=== PATIENT | female | born 1985 | race Caucasian/White ===

== ENCOUNTER 2016-11-07 10:38 | Emergency (ER) | payer OTHER ==
[~2016-11-07] VITALS: Ht 175.3 cm; Wt 95.3 kg
[~2016-11-07 10:38] MED LIST: BUPR150T8 PO; CHOL200027 PO; DOCU-27 PO; IBUP-1060 PO; OMEP20CA5 PO; OXYC-323 PO
--- NOTE | 2016-11-07 10:53 | PHYS DOC ---
Past Medical History Past Medical History: Migraines Past Surgical History: Tonsillectomy Alcohol Use: None Drug Use: None Adult General Chief Complaint Chief Complaint: HEADACHE HPI HPI Patient is a 30 year old female presents emergency room today with complaint of a headache 3 days. Patient states that she does have a history of migraines. She is actually been seen here once previously. This was in March 2014 with similar complaint. Patient reports that she feels tightness in the base of her neck and this extends up into her scalp. She denies any focal weakness or alterations in sensation. She denies any visual disturbances or tinnitus. She denies any focal weakness or alterations in sensation peripherally. Patient does report photophobia. She denies phonophobia. Review of Systems Review of Systems Constitutional: Denies fever or chills [] Eyes: Denies change in visual acuity, redness, or eye pain [] HENT: Denies nasal congestion or sore throat [] Respiratory: Denies cough or shortness of breath [] Cardiovascular: No additional information not addressed in HPI [] GI: Denies abdominal pain, nausea, vomiting, bloody stools or diarrhea [] : Denies dysuria or hematuria [] Musculoskeletal: Denies back pain or joint pain [] Integument: Denies rash or skin lesions [] Neurologic: Denies headache, focal weakness or sensory changes [] Endocrine: Denies polyuria or polydipsia [] Current Medications Current Medications Current Medications Medications (Trade) Dose Ordered Sig/Yamil Start Time Stop Time Status Last Admin Dose Admin Ketorolac Tromethamine (Toradol Im) 60 mg 1X ONCE 11/07/16 11:15 11/07/16 11:16 DC 11/07/16 11:19 60 MG Promethazine HCl (Phenergan Im) 25 mg 1X ONCE 11/07/16 11:15 11/07/16 11:16 DC 11/07/16 11:20 25 MG Allergies Allergies Allergies Coded Allergies Type Severity Reaction Last Updated Verified guaifenesin Allergy Intermediate Hives 11/18/13 Yes chlorhexidine Adverse Reaction Intermediate Rash 07/31/16 Yes Physical Exam Physical Exam Constitutional: Well developed, well nourished, no acute distress, non-toxic appearance. [] HENT: Normocephalic, atraumatic, bilateral external ears normal, oropharynx moist, no oral exudates, nose normal. [] Eyes: PERRLA, EOMI, conjunctiva normal, no discharge. [] Neck: Normal range of motion, supple, no stridor. There is bilateral tenderness to palpation to the paraspinous soft tissues. There is no midline tenderness. Negative Brudzinski's. Cardiovascular:Heart rate regular rhythm, no murmur [] Lungs & Thorax: Bilateral breath sounds clear to auscultation [] Abdomen: Bowel sounds normal, soft, no tenderness, no masses, no pulsatile masses. [] Skin: Warm, dry, no erythema, no rash. [] Back: No tenderness, no CVA tenderness. [] Extremities: No tenderness, no cyanosis, no clubbing, ROM intact, no edema. [] Neurologic: Alert and oriented X 3, cranial nerves II through XII are intact. Patient is able perform rapid alternating movement and elevation without difficulty. Romberg is negative for pronator drift. Patient ambulates with a steady, unaided gait. Psychologic: Affect normal, judgement normal, mood normal. [] Current Patient Data Vital Signs Vital Signs Date Time Temp Pulse Resp B/P Pulse Ox O2 Delivery O2 Flow Rate FiO2 11/07/16 11:24 80 16 130/86 97 Room Air 11/07/16 11:00 98.4 98.4 EKG EKG [] Radiology/Procedures Radiology/Procedures [] Course & Med Decision Making Course & Med Decision Making Patient received 60 mg of Toradol and 25 mg of Phenergan IM. Patient does have a history of migraines as well as tension headaches. She has no concerns for any different pathology for her headache. She will make contact with a new primary care doctor for follow-up. Dragon Disclaimer Dragon Disclaimer This electronic medical record was generated, in whole or in part, using a voice recognition dictation system. Departure Departure Impression: Primary Impression: Tension headache Disposition: 01 HOME, SELF-CARE Condition: IMPROVED Referrals: SANTOSH SANTOS DO (PCP) Patient Instructions: Tension Headache, [id number] Additional Instructions: 1. Take the medication as prescribed. 2. Review the discharge instructions for self-care reasons to return the emergency department. 3. Use the pamphlet provided for assistance in finding herself a new primary care doctor to address your medical concerns. Scripts Naproxen 500 Mg Tablet1 Tab PO BID tension headache #20 TAB Ref 1 Prov:BRUNA LOVE 11/07/16 Cyclobenzaprine Hcl 10 Mg Tablet1 Tab PO TID muscle spasm/tension headache #15 TAB Prov:BRUNA LOVE 11/07/16 BRUNA LOVE Nov 07, 2016 10:53
[2016-11-07] MEDS ORDERED: PROMETHAZINE IM 25 MG/ML VIAL IM ONE (11:15)
[2016-11-07] MEDS ORDERED: KETOROLAC TROMETHAMINE 60 MG/2 ML SYRINGE. IM ONE (11:15)
[2016-11-07 11:24] VITALS: BP 130/86
[2016-11-07] MEDS ORDERED: NAPR500T3 PO (11:45)
[2016-11-07] MEDS ORDERED: CYCL10TA2 PO (11:45)
== END 2016-11-07 12:05 | disposition home or self-care (01) ==
LOC: ER 10:38
DX: G44.209 Tension-type headache, unspecified, not intractable (principal); G43.909 Migraine, unspecified, not intractable, without status migrainosus; Z88.8 Allergy status to other drugs, medicaments and biological substances
CPT/HCPCS: 96372; 99284; J1885; J2550

== ENCOUNTER → 2017-01-16 | Outpatient (CLI) | payer OTHER ==
[~2017-01-16] VITALS: Ht 175.3 cm; Wt 93.9 kg
[~2017-01-16] MED LIST changes: +CYCL10TA2 PO; +NAPR500T3 PO; +NORMAL SALINE IV ONE; +SINCALIDE IV ONE
--- NOTE | 2017-01-16 13:26 | RAD ---
Radionuclide hepatobiliary scan with gallbladder ejection fraction, 01/16/2017: History: Abdominal pain Following IV injection of 5.5 mCi of technetium 99m Choletec there was prompt uptake of the radionuclide from the blood stream by the liver. Activity is present in the bile ducts at 10 minutes and in the small bowel at 15 minutes. Gallbladder activity develops at 25 minutes. Additional imaging of the gallbladder was performed following IV injection of 1.9 mcg of cholecystokinin. The gallbladder ejection fraction is 5%. IMPRESSION: 1. No evidence of cystic duct or common bile duct obstruction. 2. Low gallbladder ejection fraction of 5%.
== END | disposition home or self-care (01) ==
LOC: NM 08:58
PROVIDERS: ATTEND Internal Medicine
DX: R10.9 Unspecified abdominal pain (principal)
CPT/HCPCS: 78226; 96374; 96375; A9537; J2805

== ENCOUNTER 2017-01-20 17:15 | Inpatient (IN) | payer OTHER ==
[~2017-01-20] VITALS: Ht 175.3 cm; Wt 93.0 kg
[~2017-01-20 17:15] MED LIST changes: -NORMAL SALINE IV ONE; -SINCALIDE IV ONE
[2017-01-20] MEDS ORDERED: IV NORMAL SALINE 1000ML BAG 1,000 ML IV ONE (17:45)
[2017-01-20] MEDS ORDERED: ONDANSETRON PF 4 MG/2 ML VIAL. IV ONE (17:45)
[2017-01-20] MEDS ORDERED: FENTANYL PF 100 MCG/2 ML VIAL. IV ONE ×2 (17:45)
[2017-01-20] MEDS ORDERED: ONDANSETRON PF 4 MG/2 ML VIAL. IV PRN ×2 (17:45→18:48)
[2017-01-20 18:24] LABS: BASO # 0.1 x10^3/uL (0.0-0.2); BASO % 1 % (0-3); EOS % 1 % (0-3); HEMATOCRIT 43.4 % (36.0-47.0); HEMOGLOBIN 13.8 g/dL (12.0-15.5); LYMPH # 3.5 x10^3/uL (1.0-4.8); LYMPH % 26 % (24-48); MEAN CORPUSCULAR HEMOGLOBIN 27 pg (25-35); MEAN CORPUSCULAR HGB CONC 32 g/dL (31-37); MEAN CORPUSCULAR VOLUME 85 fL (79-100); MONO % 6 % (0-9); NEUT % 66 % (31-73); PLATELET COUNT 234 x10^3/uL (140-400); RED BLOOD COUNT 5.12 x10^6/uL (3.50-5.40); RED CELL DISTRIBUTION WIDTH 13.4 % (11.5-14.5); WHITE BLOOD COUNT 13.2 x10^3/uL (4.0-11.0)
--- NOTE | 2017-01-20 18:27 | PHYS DOC ---
Past Medical History Past Medical History: Anxiety, GERD, Migraines Additional Past Medical Histor: ppd, vit d deficiency Past Surgical History: Tonsillectomy, Tubal ligation Additional Past Surgical Histo: partial hymenectomy Alcohol Use: None Drug Use: None Adult General Chief Complaint Chief Complaint: ABDOMINAL PAIN HPI HPI 31-year-old female with known gallbladder dysfunction who is scheduled to see Dr. Tavarez this week for cholecystectomy presents again to the emergency department with intractable pain. She states the pain is severe enough to double her over. She states a week ago she is had a 14,000 white count and she' s had a temperature at home greater than 100. She states she just really unable to manage her pain as an outpatient. She states she is artery had a gallbladder ultrasound which was unrevealing but she had a HIDA scan which showed an ejection fraction at 5%. Review of Systems Review of Systems Constitutional: Denies fever or chills [] Eyes: Denies change in visual acuity, redness, or eye pain [] HENT: Denies nasal congestion or sore throat [] Respiratory: Denies cough or shortness of breath [] Cardiovascular: No additional information not addressed in HPI [] GI: Per history of present illness [] : Denies dysuria or hematuria [] Musculoskeletal: Denies back pain or joint pain [] Integument: Denies rash or skin lesions [] Neurologic: Denies headache, focal weakness or sensory changes [] Endocrine: Denies polyuria or polydipsia [] Current Medications Current Medications Current Medications Medications (Trade) Dose Ordered Sig/Yamil Start Time Stop Time Status Last Admin Dose Admin Fentanyl Citrate (Fentanyl 2ml Vial) 50 mcg PRN Q2HR PRN 01/20/17 17:45 01/21/17 17:44 Ondansetron HCl (Zofran) 4 mg PRN Q8HRS PRN 01/20/17 17:45 01/21/17 17:44 Sodium Chloride (Iv Sodium Chloride 0.9% 1000ml Bag) 1,000 ml @ 1,000 mls/hr 1X ONCE 01/20/17 17:45 01/20/17 18:44 01/20/17 18:20 1,000 MLS/HR Allergies Allergies Allergies Coded Allergies Type Severity Reaction Last Updated Verified guaifenesin Allergy Intermediate Hives 01/20/17 Yes chlorhexidine Adverse Reaction Intermediate Rash 07/31/16 Yes Physical Exam Physical Exam Constitutional: Well developed, well nourished, no acute distress, non-toxic appearance. [] HENT: Normocephalic, atraumatic, bilateral external ears normal, oropharynx moist, no oral exudates, nose normal. [] Eyes: PERRLA, EOMI, conjunctiva normal, no discharge. [] Neck: Normal range of motion, no tenderness, supple, no stridor. [] Cardiovascular:Heart rate regular rhythm, no murmur [] Lungs & Thorax: Bilateral breath sounds clear to auscultation [] Abdomen: Right upper quadrant very tender to palp positive Bullard's [] Skin: Warm, dry, no erythema, no rash. [] Back: No tenderness, no CVA tenderness. [] Extremities: No tenderness, no cyanosis, no clubbing, ROM intact, no edema. [] Neurologic: Alert and oriented X 3, normal motor function, normal sensory function, no focal deficits noted. [] Psychologic: Affect normal, judgement normal, mood normal. [] Current Patient Data Vital Signs Vital Signs Date Time Temp Pulse Resp B/P Pulse Ox O2 Delivery O2 Flow Rate FiO2 01/20/17 17:24 100.2 82 18 132/82 98 Room Air 100.2 Lab Values Laboratory Tests Test 01/20/17 17:09 POC Urine HCG, Qualitative Hcg negative (Negative) EKG EKG [] Radiology/Procedures Radiology/Procedures [] Course & Med Decision Making Course & Med Decision Making Pertinent Labs and Imaging studies reviewed. (See chart for details) [ED course: Evaluation reveals a 31-year-old female in moderate distress secondary to abdominal pain. Given her extensive workup for gallbladder disease in her continued pain I felt it was best for the patient to be admitted to have a cholecystectomy as soon as possible. Patient was in agreement with this. I spoke with Dr. Spencer who agreed to accept patient for admission. I also spoke with Dr. Xavier who agreed to evaluate her in the morning.] Dragon Disclaimer Dragon Disclaimer This electronic medical record was generated, in whole or in part, using a voice recognition dictation system. Departure Departure Impression: Primary Impression: Abdominal pain Disposition: ADMITTED INPATIENT Admitting Physician: Alicja Spencer Condition: STABLE Referrals: SANTOSH SANTOS DO (PCP) Problem Qualifiers Primary Impression: Abdominal pain Abdominal location: right upper quadrant Qualified Code: R10.11 - Right upper quadrant pain TERRY FORD DO Jan 20, 2017 18:27
[2017-01-20 18:41] LABS: CALCIUM 9.6 mg/dL (8.5-10.1); CREATININE 0.8 mg/dL (0.6-1.0); GFR 83.1; POTASSIUM 3.9 mmol/L (3.5-5.1)
[2017-01-20 18:47] LABS: ALBUMIN 4.2 g/dL (3.4-5.0); ALBUMIN/GLOBULIN RATIO 1.2 (1.0-1.7); TOTAL BILIRUBIN 0.3 mg/dL (0.2-1.0); TOTAL PROTEIN 7.6 g/dL (6.4-8.2)
[2017-01-20 19:00] VITALS: BP 116/69
[2017-01-20] MEDS ORDERED: CYCLOBENZAPRINE 10 MG TABLET. PO PRN (19:00)
[2017-01-20] MEDS ORDERED: OXYCODONE/APAP 5/325 TABLET. PO PRN (19:00)
[2017-01-20] MEDS ORDERED: ACETAMINOPHEN 500 MG TABLET PO PRN (19:00)
--- NOTE | 2017-01-20 19:36 | PDOC1 ---
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 [facility] consulted, Planned for lap thor teodora AM. PAin had no identifiable precipotating or alleviating factors, mostly concentrated on RUQ area, no reported emesis etc PAst medical hx, Depression on wellbutrin, otherwise all else is neg. NO to 3 vices, FAm hx insignificant Past Medical History Psych: Depression Past Surgical History Past Surgical History: No pertinent history Family History Family History: No Significant Social History Smoke: No ALCOHOL: none Drugs: None Current Problem List Problem List Problems Medical Problems: (1) Abdominal pain Status: Acute Problems: Current Medications Current Medications Current Medications Sodium Chloride (Iv Sodium Chloride 0.9% 1000ml Bag) 1,000 ml @ 1,000 mls/hr 1X ONCE IV Last administered on 01/20/17 18:20; Start 01/20/17 at 17:45; Stop 01/20/17 at 18:44; Status DC Fentanyl Citrate (Fentanyl 2ml Vial) 50 mcg 1X ONCE IV ; Start 01/20/17 at 17:45 ; Stop 01/20/17 at 17:46; Status Cancel Ondansetron HCl (Zofran) 4 mg 1X ONCE IV Last administered on 01/20/17 18:19; Start 01/20/17 at 17:45; Stop 01/20/17 at 17:46; Status DC Fentanyl Citrate (Fentanyl 2ml Vial) 50 mcg 1X ONCE IV Last administered on 18:21; Start 01/20/17 at 17:45; Stop 01/20/17 at 17:46; Status DC Ondansetron HCl (Zofran) 4 mg PRN Q8HRS PRN IV NAUSEA/VOMITING; Start 01/20/17 at 17:45; Stop 01/20/17 at 18:49; Status DC Fentanyl Citrate 50 mcg 50 mcg PRN Q2HR PRN IV PAIN; Start 01/20/17 at 17:45; Stop 01/21/17 at 17:44 Sodium Chloride (Iv Sodium Chloride 0.9% 1000ml Bag) 1,000 ml @ 150 mls/hr Q6H40M IV ; Start 01/20/17 at 18:00; Stop 01/21/17 at 17:59 Ondansetron HCl (Zofran) 4 mg PRN Q6HRS PRN IV NAUSEA/VOMITING; Start 01/20/17 at 18:48 Acetaminophen (Tylenol) 500 mg PRN Q6HRS PRN PO MILD PAIN / TEMP; Start at 19:00 Bupropion HCl (Wellbutrin Sr) 150 mg BID PO ; Start 01/20/17 at 21:00 Oxycodone/ Acetaminophen (Percocet 5/325) 1 tab PRN Q4HRS PRN PO pain; Start at 19:00 Vitamin D (Vitamin D3) 2,000 unit DAILY PO ; Start 01/21/17 at 09:00 Pantoprazole Sodium (Protonix) 40 mg DAILYAC PO ; Start 01/21/17 at 07:30 Cyclobenzaprine HCl (Flexeril) 10 mg PRN Q6HRS PRN PO MUSCLE SPASMS; Start 01/20 at 19:00 Active Scripts Active Naproxen 500 Mg Tablet 1 Tab PO BID Cyclobenzaprine Hcl 10 Mg Tablet 1 Tab PO TID Prilosec (Omeprazole) 20 Mg Capsule. 1 Cap PO DAILY Reported Percocet 5-325 Mg Tablet (Oxycodone/Acetaminophen) 1 Each Tablet 1-2 Tab PO Q4HRS Vitamin D3 (Cholecalciferol (Vitamin D3)) 2,000 Unit Tablet 2,000 Unit PO DAILY Wellbutrin Sr (Bupropion Hcl) 150 Mg Tablet.er 150 Mg PO BID Allergies Allergies: Coded Allergies: guaifenesin (Verified Allergy, Intermediate, Hives, 01/20/17) Thinks she is allergic to the dye, tolerates guafension unable to take the brand robitussin chlorhexidine (Verified Adverse Reaction, Intermediate, Rash, 07/31/16) CHLORAPREP ROS General: YES: Other (low grade temp) PSYCHOLOGICAL ROS: No: Anxiety, Behavioral Disorder, Concentration difficultie , Decreased libido, Depression, Disorientation, Hallucinations, Hostility, Irritablity, Memory difficulties, Mood Swings, Obsessive thoughts, Other, Physical abuse, Sexual abuse, Sleep disturbances, Suicidal ideation Eyes: No Blurry vision, No Decreased vision, No Double vision, No Dry eyes, No Excessive tearing, No Eye Pain, No Itchy Eyes, No Loss of vision, No Other, No Photophobia, No Scotomata, No Uses contacts, No Uses glasses HEENT: No: Epistaxis, Heacaches, Hearing change, Nasal congestion, Nasal discharge, Oral lesions, Other, Sinus pain, Sneezing, Snoring, Sore Throat, Tinnitus, Vertigo, Visual Changes, Vocal changes ALLERGY AND IMMUNOLOGY: No: Hives, Insect Bite Sensitivity, Itchy/Watery Eyes, Nasal Congestion, Other, Post Nasal Drip, Seasonal Allergies Hematological and Lymphatic: No: Bleeding Problems, Blood Clots, Blood Transfusions, Brusing, Night Sweats, Other, Pallor, Swollen Lymph Nodes ENDOCRINE: No: Breast Changes, Galactorrhea, Hair Pattern Changes, Hot Flashes , Malaise/lethargy, Mood Swings, Other, Palpitations, Polydipsia/polyuria, Skin Changes, Temperature Intolerance, Unexpected Weight Changes Breast: No New/Changing Breast Lumps, No Nipple changes, No Nipple discharge, No Other Respiratory: No: Cough, Hemoptysis, Orthopnea, Other, Pleuritic Pain, SOB with excertion, Shortness of breath, Sputum Changes, Stridor, Tachypnea, Wheezing Cardiovascular: No Chest Pain, No Edema, No Lt Headedness, No Orthopnea, No Other, No Palpitations, No Paroxysmal Noc. Dyspnea Gastrointestinal: Yes Abdominal Pain Genitourinary: No , No , No , No , No , No , No , No Discharge, No Dysuria, No Flank Pain, No Frequency, No Hematuria, No Incontinence, No Other, No Pain, No Retention, No Urgency Musculoskeletal: No Gait Disturbance, No Joint Pain, No Joint Stiffness, No Joint Swelling, No Muscle Pain, No Muscular Weakness, No Other, No Pain In:, No Swelling In: Neurological: No Behavorial Changes, No Bowel/Bladder ControlChng, No Confusion , No Dizziness, No Gait Disturbance, No Headaches, No Impaired Coord/balance, No Memory Loss, No Numbness/Tingling, No Other, No Seizures, No Speech Problems , No Tremors, No Visual Changes, No Weakness Skin: No Acne, No Dry Skin, No Eczema, No Hair Changes, No Lumps, No Mole Changes, No Mottling, No Nail Changes, No Other, No Pruritus, No Rash, No Skin Lesion Changes Physical Exam General: Alert, Oriented X3, Cooperative, No acute distress HEENT: Atraumatic, PERRLA, EOMI Lungs: Clear to auscultation, Normal air movement Heart: S1S2, RRR, no thrills, no rubs, no gallops, no murmurs Cardiovascular: S1, S2 Breasts: Normal Abdomen: Soft, Other (tenderness RUQ area on deep palp) PELVIC: Nml ext genitalia Extremities: No clubbing, No cyanosis, No edema, Normal pulses, No tenderness/ swelling Skin: No rashes, No breakdown, No significant lesion Neuro: Normal gait, Normal speech, Strength at 5/5 X4 ext, Normal tone, Sensation intact, Cranial nerves 3-12 NL, Reflexes 2+ Psych/Mental Status: Mental status NL, Mood NL Vitals Vitals Vital Signs Date Time Temp Pulse Resp B/P Pulse Ox O2 Delivery O2 Flow Rate FiO2 01/20/17 18:21 20 Room Air 01/20/17 17:24 100.2 82 132/82 98 100.2 Labs Labs Laboratory Tests Test 01/20/17 17:09 01/20/17 18:08 Bedside Urine HCG, Qualitative Hcg negative (Negative) White Blood Count 13.2x10^3/uL (4.0-11.0) Red Blood Count 5.12x10^6/uL (3.50-5.40) Hemoglobin 13.8g/dL (12.0-15.5) Hematocrit 43.4% (36.0-47.0) Mean Corpuscular Volume 85fL (79-100) Mean Corpuscular Hemoglobin 27pg (25-35) Mean Corpuscular Hemoglobin Concent 32g/dL (31-37) Red Cell Distribution Width 13.4% (11.5-14.5) Platelet Count 234x10^3/uL (140-400) Neutrophils (%) (Auto) 66% (31-73) Lymphocytes (%) (Auto) 26% (24-48) Monocytes (%) (Auto) 6% (0-9) Eosinophils (%) (Auto) 1% (0-3) Basophils (%) (Auto) 1% (0-3) Neutrophils # (Auto) 8.8x10^3uL (1.8-7.7) Lymphocytes # (Auto) 3.5x10^3/uL (1.0-4.8) Monocytes # (Auto) 0.8x10^3/uL (0.0-1.1) Eosinophils # (Auto) 0.1x10^3/uL (0.0-0.7) Basophils # (Auto) 0.1x10^3/uL (0.0-0.2) Sodium Level 140mmol/L (136-145) Potassium Level 3.9mmol/L (3.5-5.1) Chloride Level 103mmol/L (98-107) Carbon Dioxide Level 26mmol/L (21-32) Anion Gap 11 (6-14) Blood Urea Nitrogen 10mg/dL (7-20) Creatinine 0.8mg/dL (0.6-1.0) Estimated GFR (Cockcroft-Gault) 83.1 BUN/Creatinine Ratio 13 (6-20) Glucose Level 99mg/dL (70-99) Calcium Level 9.6mg/dL (8.5-10.1) Total Bilirubin 0.3mg/dL (0.2-1.0) Aspartate Amino Transf (AST/SGOT) 17U/L (15-37) Alanine Aminotransferase (ALT/SGPT) 21U/L (14-59) Alkaline Phosphatase 87U/L (46-116) Total Protein 7.6g/dL (6.4-8.2) Albumin 4.2g/dL (3.4-5.0) Albumin/Globulin Ratio 1.2 (1.0-1.7) Lipase 129U/L (73-393) Laboratory Tests Test 01/20/17 17:09 01/20/17 18:08 Bedside Urine HCG, Qualitative Hcg negative (Negative) White Blood Count 13.2x10^3/uL (4.0-11.0) Red Blood Count 5.12x10^6/uL (3.50-5.40) Hemoglobin 13.8g/dL (12.0-15.5) Hematocrit 43.4% (36.0-47.0) Mean Corpuscular Volume 85fL (79-100) Mean Corpuscular Hemoglobin 27pg (25-35) Mean Corpuscular Hemoglobin Concent 32g/dL (31-37) Red Cell Distribution Width 13.4% (11.5-14.5) Platelet Count 234x10^3/uL (140-400) Neutrophils (%) (Auto) 66% (31-73) Lymphocytes (%) (Auto) 26% (24-48) Monocytes (%) (Auto) 6% (0-9) Eosinophils (%) (Auto) 1% (0-3) Basophils (%) (Auto) 1% (0-3) Neutrophils # (Auto) 8.8x10^3uL (1.8-7.7) Lymphocytes # (Auto) 3.5x10^3/uL (1.0-4.8) Monocytes # (Auto) 0.8x10^3/uL (0.0-1.1) Eosinophils # (Auto) 0.1x10^3/uL (0.0-0.7) Basophils # (Auto) 0.1x10^3/uL (0.0-0.2) Sodium Level 140mmol/L (136-145) Potassium Level 3.9mmol/L (3.5-5.1) Chloride Level 103mmol/L (98-107) Carbon Dioxide Level 26mmol/L (21-32) Anion Gap 11 (6-14) Blood Urea Nitrogen 10mg/dL (7-20) Creatinine 0.8mg/dL (0.6-1.0) Estimated GFR (Cockcroft-Gault) 83.1 BUN/Creatinine Ratio 13 (6-20) Glucose Level 99mg/dL (70-99) Calcium Level 9.6mg/dL (8.5-10.1) Total Bilirubin 0.3mg/dL (0.2-1.0) Aspartate Amino Transf (AST/SGOT) 17U/L (15-37) Alanine Aminotransferase (ALT/SGPT) 21U/L (14-59) Alkaline Phosphatase 87U/L (46-116) Total Protein 7.6g/dL (6.4-8.2) Albumin 4.2g/dL (3.4-5.0) Albumin/Globulin Ratio 1.2 (1.0-1.7) Lipase 129U/L (73-393) VTE Prophylaxis Ordered VTE Prophylaxis Devices: Yes VTE Pharmacological Prophylaxi: Yes Assessment/Plan Assessment/Plan 1. Acute cholelithiasis 2. Low grade temp 3. Depression NOS 4. Overweight PLAN: 1 dose cefazolin pre OR NPO post MN Ok for liquid diet tonight LAp thor planned for teodora by COnt wellbutrin and other home med HEIDI PRIETO MD Jan 20, 2017 19:36
[2017-01-20] MEDS ORDERED: CEFAZOLIN 2GM PREMIX 50 ML IV ONE (19:45)
[2017-01-20] MEDS: buPROPion SR 150 MG TABLET.SA PO SCH (21:50)
[2017-01-20] MEDS: IV NORMAL SALINE 1000ML BAG 1,000 ML IV SCH (21:50)
[2017-01-20] MEDS: FENTANYL PF 100 MCG/2 ML VIAL. IV PRN (21:53)
[2017-01-20 23:00] VITALS: BP 92/54
[2017-01-21] MEDS: IV NORMAL SALINE 1000ML BAG 1,000 ML IV SCH ×3 (00:40→13:04)
[2017-01-21] MEDS: FENTANYL PF 100 MCG/2 ML VIAL. IV PRN ×6 (05:20→16:28)
[2017-01-21] MEDS ORDERED: BUPIVAC MPF-EPI 0.5%-1:200000 30 ML VIAL. ONE (07:15)
[2017-01-21] MEDS ORDERED: SURGICEL HEMOSTAT 4X8 EACH. ONE (07:15)
[2017-01-21] MEDS ORDERED: IOHEXOL 300 MG/ML 50 ML VIAL. ONE (07:15)
[2017-01-21] MEDS ORDERED: IV RINGERS,LACTATED 1000ML 1,000 ML IV SCH (07:30)
[2017-01-21] MEDS ORDERED: FENTANYL PF 100 MCG/2 ML VIAL. IV PRN ×2 (07:30→11:15)
[2017-01-21] MEDS ORDERED: MORPHINE SULFATE 2 MG/ML DISP.SYRIN. IV PRN (07:30)
[2017-01-21] MEDS ORDERED: PROCHLORPERAZINE 10 MG/2 ML VIAL. IV PRN (07:30)
[2017-01-21] MEDS ORDERED: HYDROMORPHONE 2 MG/ML VIAL. IV PRN (07:30)
[2017-01-21] MEDS ORDERED: PANTOPRAZOLE 40 MG TABLET.DR. PO SCH (07:30)
[2017-01-21] MEDS ORDERED: ONDANSETRON PF 4 MG/2 ML VIAL. IV PRN (07:30)
[2017-01-21] MEDS ORDERED: LIDOCAINE 1% 1 ML SYRINGE. ID PRN (07:30)
[2017-01-21] MEDS ORDERED: ROCURONIUM 50 MG/5 ML VIAL. ONE (07:35)
[2017-01-21] MEDS ORDERED: ONDANSETRON PF 4 MG/2 ML VIAL. ONE (07:35)
[2017-01-21] MEDS ORDERED: DEXAMETHASONE SOD PHOS 20 MG/5 ML VIAL. ONE (07:35)
[2017-01-21] MEDS ORDERED: MIDAZOLAM HCL/PF 2 MG/2 ML VIAL. ONE (07:35)
[2017-01-21] MEDS ORDERED: FENTANYL PF 250 MCG/5 ML VIAL. ONE (07:35)
[2017-01-21] MEDS ORDERED: PROPOFOL 20 ML IV ONE (07:36)
[2017-01-21] MEDS ORDERED: LIDOCAINE 2% 100 MG/5 ML SYRINGE. ONE (07:36)
--- NOTE | 2017-01-21 07:41 | PDOC2 ---
CONSULT Date of Consult Date of Consult DATE: 01/21/17 TIME: 07:38 History of Present Illness Reason for Visit: The patient is a 31 year old female who reported to the ER because of abdominal pain. The pain is located in the RUQ with some radiation to the back. She has been experiencing recurrent bouts of this pain over the last month. The pain is sharp and worse with eating. She has had a prior evaluation showing both gallstones and a very low gallbladder EF of 5%. Past Medical History Past Medical History depression, GERD Psych: Depression Past Surgical History Past Surgical History Tubal, tonsils Past Surgical History: No pertinent history Family History Family History: No Significant Social History No ALCOHOL: none Drugs: None Current Problem List Problem List Problems Medical Problems: (1) Abdominal pain Status: Acute Current Medications Current Medications Current Medications Sodium Chloride (Iv Sodium Chloride 0.9% 1000ml Bag) 1,000 ml @ 1,000 mls/hr 1X ONCE IV Last administered on 01/20/17 18:20; Start 01/20/17 at 17:45; Stop 01/20/17 at 18:44; Status DC Fentanyl Citrate (Fentanyl 2ml Vial) 50 mcg 1X ONCE IV ; Start 01/20/17 at 17:45 ; Stop 01/20/17 at 17:46; Status Cancel Ondansetron HCl (Zofran) 4 mg 1X ONCE IV Last administered on 01/20/17 18:19; Start 01/20/17 at 17:45; Stop 01/20/17 at 17:46; Status DC Fentanyl Citrate (Fentanyl 2ml Vial) 50 mcg 1X ONCE IV Last administered on 18:21; Start 01/20/17 at 17:45; Stop 01/20/17 at 17:46; Status DC Ondansetron HCl (Zofran) 4 mg PRN Q8HRS PRN IV NAUSEA/VOMITING; Start 01/20/17 at 17:45; Stop 01/20/17 at 18:49; Status DC Fentanyl Citrate 50 mcg 50 mcg PRN Q2HR PRN IV PAIN Last administered on 05:20; Start 01/20/17 at 17:45; Stop 01/21/17 at 17:44 Sodium Chloride (Iv Sodium Chloride 0.9% 1000ml Bag) 1,000 ml @ 150 mls/hr Q6H40M IV Last administered on 01/20/17 21:50; Start 01/20/17 at 18:00; Stop 01/21/17 at 17:59 Ondansetron HCl (Zofran) 4 mg PRN Q6HRS PRN IV NAUSEA/VOMITING Last administered on 01/21/17 05:20; Start 01/20/17 at 18:48 Acetaminophen (Tylenol) 500 mg PRN Q6HRS PRN PO MILD PAIN / TEMP; Start at 19:00 Bupropion HCl (Wellbutrin Sr) 150 mg BID PO Last administered on 01/20/17 21:50 ; Start 01/20/17 at 21:00 Oxycodone/ Acetaminophen (Percocet 5/325) 1 tab PRN Q4HRS PRN PO pain; Start at 19:00 Vitamin D (Vitamin D3) 2,000 unit DAILY PO ; Start 01/21/17 at 09:00 Pantoprazole Sodium (Protonix) 40 mg DAILYAC PO ; Start 01/21/17 at 07:30 Cyclobenzaprine HCl 10 mg 10 mg PRN Q6HRS PRN PO MUSCLE SPASMS; Start 01/20/17 at 19:00 Cefazolin Sodium/ Dextrose 50 ml @ 100 mls/hr 1X ONCE IV ; Start 01/20/17 at 19 :45; Stop 01/20/17 at 20:14; Status Cancel Cefazolin Sodium/ Dextrose (Ancef 2gm Premix) 50 ml @ 100 mls/hr 1X ONCE IV ; Start 01/21/17 at 08:00; Stop 01/21/17 at 08:29 Ondansetron HCl (Zofran) 0.4 mg PRN Q6HRS PRN IV NAUSEA/VOMITING; Start at 07:30; Stop 01/21/17 at 18:00 Fentanyl Citrate (Fentanyl 2ml Vial) 25 mcg PRN Q5MIN PRN IV MILD PAIN; Start 01/21/17 at 07:30; Stop 01/21/17 at 18:00 Fentanyl Citrate (Fentanyl 2ml Vial) 50 mcg PRN Q5MIN PRN IV MODERATE PAIN; Start 01/21/17 at 07:30; Stop 01/21/17 at 18:00 Morphine Sulfate 1 mg 1 mg PRN Q10MIN PRN IV SEVERE PAIN; Start 01/21/17 at 07: 30; Stop 01/21/17 at 18:00 Lactated Ringer's (Iv Lactated Ringers) 1,000 ml @ 30 mls/hr Q24H IV ; Start at 07:30; Stop 01/21/17 at 18:00 Lidocaine HCl 2 ml PRN 1X PRN ID PRIOR TO IV START; Start 01/21/17 at 07:30; Stop 01/21/17 at 18:00 Hydromorphone HCl (Dilaudid) 0.5 mg PRN Q10MIN PRN IV SEV PAIN, Second choice; Start 01/21/17 at 07:30; Stop 01/21/17 at 18:00 Prochlorperazine Edisylate (Compazine) 5 mg PACU PRN PRN IV NAUSEA, MRX1; Start 01/21/17 at 07:30; Stop 01/21/17 at 18:00 Active Scripts Active Naproxen 500 Mg Tablet 1 Tab PO BID Cyclobenzaprine Hcl 10 Mg Tablet 1 Tab PO TID Prilosec (Omeprazole) 20 Mg Capsule.dr 1 Cap PO DAILY Reported Percocet 5-325 Mg Tablet (Oxycodone/Acetaminophen) 1 Each Tablet 1-2 Tab PO Q4HRS Vitamin D3 (Cholecalciferol (Vitamin D3)) 2,000 Unit Tablet 2,000 Unit PO DAILY Wellbutrin Sr (Bupropion Hcl) 150 Mg Tablet.er 150 Mg PO BID Allergies Allergies: Coded Allergies: guaifenesin (Verified Allergy, Intermediate, Hives, 01/21/17) Thinks she is allergic to the dye, tolerates guafension unable to take the brand robitussin chlorhexidine (Verified Adverse Reaction, Intermediate, Rash, 01/21/17) CHLORAPREP ROS General: No: Appetite, Chills, Fatigue, Malaise, Night Sweats, Other PSYCHOLOGICAL ROS: No: Anxiety, Behavioral Disorder, Concentration difficultie , Decreased libido, Depression, Disorientation, Hallucinations, Hostility, Irritablity, Memory difficulties, Mood Swings, Obsessive thoughts, Other, Physical abuse, Sexual abuse, Sleep disturbances, Suicidal ideation HEENT: No: Epistaxis, Heacaches, Hearing change, Nasal congestion, Nasal discharge, Oral lesions, Other, Sinus pain, Sneezing, Snoring, Sore Throat, Tinnitus, Vertigo, Visual Changes, Vocal changes ALLERGY AND IMMUNOLOGY: No: Hives, Insect Bite Sensitivity, Itchy/Watery Eyes, Nasal Congestion, Other, Post Nasal Drip, Seasonal Allergies Hematological and Lymphatic: No: Bleeding Problems, Blood Clots, Blood Transfusions, Brusing, Night Sweats, Other, Pallor, Swollen Lymph Nodes ENDOCRINE: No: Breast Changes, Galactorrhea, Hair Pattern Changes, Hot Flashes , Malaise/lethargy, Mood Swings, Other, Palpitations, Polydipsia/polyuria, Skin Changes, Temperature Intolerance, Unexpected Weight Changes Respiratory: No: Cough, Hemoptysis, Orthopnea, Other, Pleuritic Pain, SOB with excertion, Shortness of breath, Sputum Changes, Stridor, Tachypnea, Wheezing Cardiovascular: No Chest Pain, No Edema, No Lt Headedness, No Orthopnea, No Other, No Palpitations, No Paroxysmal Noc. Dyspnea Gastrointestinal: Yes Abdominal Pain Genitourinary: No , No , No , No , No , No , No , No Discharge, No Dysuria, No Flank Pain, No Frequency, No Hematuria, No Incontinence, No Other, No Pain, No Retention, No Urgency Musculoskeletal: No Gait Disturbance, No Joint Pain, No Joint Stiffness, No Joint Swelling, No Muscle Pain, No Muscular Weakness, No Other, No Pain In:, No Swelling In: Neurological: No Behavorial Changes, No Bowel/Bladder ControlChng, No Confusion , No Dizziness, No Gait Disturbance, No Headaches, No Impaired Coord/balance, No Memory Loss, No Numbness/Tingling, No Other, No Seizures, No Speech Problems , No Tremors, No Visual Changes, No Weakness Physical Exam General: Alert, Oriented X3, Cooperative HEENT: Atraumatic Lungs: Clear to auscultation Heart: Regular rate Abdomen: Soft, No masses Extremities: No clubbing, No cyanosis Skin: No rashes Neuro: Normal speech Psych/Mental Status: Mental status NL MUSCULOSKELETAL: No joint tenderness, No swelling Vitals VITALS Vital Signs Date Time Temp Pulse Resp B/P Pulse Ox O2 Delivery O2 Flow Rate FiO2 01/21/17 05:50 Room Air 01/20/17 23:00 97.4 79 18 92/54 98 97.4 Labs Labs Laboratory Tests Test 01/20/17 17:09 01/20/17 18:08 Bedside Urine HCG, Qualitative Hcg negative (Negative) White Blood Count 13.2x10^3/uL (4.0-11.0) Red Blood Count 5.12x10^6/uL (3.50-5.40) Hemoglobin 13.8g/dL (12.0-15.5) Hematocrit 43.4% (36.0-47.0) Mean Corpuscular Volume 85fL (79-100) Mean Corpuscular Hemoglobin 27pg (25-35) Mean Corpuscular Hemoglobin Concent 32g/dL (31-37) Red Cell Distribution Width 13.4% (11.5-14.5) Platelet Count 234x10^3/uL (140-400) Neutrophils (%) (Auto) 66% (31-73) Lymphocytes (%) (Auto) 26% (24-48) Monocytes (%) (Auto) 6% (0-9) Eosinophils (%) (Auto) 1% (0-3) Basophils (%) (Auto) 1% (0-3) Neutrophils # (Auto) 8.8x10^3uL (1.8-7.7) Lymphocytes # (Auto) 3.5x10^3/uL (1.0-4.8) Monocytes # (Auto) 0.8x10^3/uL (0.0-1.1) Eosinophils # (Auto) 0.1x10^3/uL (0.0-0.7) Basophils # (Auto) 0.1x10^3/uL (0.0-0.2) Sodium Level 140mmol/L (136-145) Potassium Level 3.9mmol/L (3.5-5.1) Chloride Level 103mmol/L (98-107) Carbon Dioxide Level 26mmol/L (21-32) Anion Gap 11 (6-14) Blood Urea Nitrogen 10mg/dL (7-20) Creatinine 0.8mg/dL (0.6-1.0) Estimated GFR (Cockcroft-Gault) 83.1 BUN/Creatinine Ratio 13 (6-20) Glucose Level 99mg/dL (70-99) Calcium Level 9.6mg/dL (8.5-10.1) Total Bilirubin 0.3mg/dL (0.2-1.0) Aspartate Amino Transf (AST/SGOT) 17U/L (15-37) Alanine Aminotransferase (ALT/SGPT) 21U/L (14-59) Alkaline Phosphatase 87U/L (46-116) Total Protein 7.6g/dL (6.4-8.2) Albumin 4.2g/dL (3.4-5.0) Albumin/Globulin Ratio 1.2 (1.0-1.7) Lipase 129U/L (73-393) Laboratory Tests Test 01/20/17 17:09 01/20/17 18:08 Bedside Urine HCG, Qualitative Hcg negative (Negative) White Blood Count 13.2x10^3/uL (4.0-11.0) Red Blood Count 5.12x10^6/uL (3.50-5.40) Hemoglobin 13.8g/dL (12.0-15.5) Hematocrit 43.4% (36.0-47.0) Mean Corpuscular Volume 85fL (79-100) Mean Corpuscular Hemoglobin 27pg (25-35) Mean Corpuscular Hemoglobin Concent 32g/dL (31-37) Red Cell Distribution Width 13.4% (11.5-14.5) Platelet Count 234x10^3/uL (140-400) Neutrophils (%) (Auto) 66% (31-73) Lymphocytes (%) (Auto) 26% (24-48) Monocytes (%) (Auto) 6% (0-9) Eosinophils (%) (Auto) 1% (0-3) Basophils (%) (Auto) 1% (0-3) Neutrophils # (Auto) 8.8x10^3uL (1.8-7.7) Lymphocytes # (Auto) 3.5x10^3/uL (1.0-4.8) Monocytes # (Auto) 0.8x10^3/uL (0.0-1.1) Eosinophils # (Auto) 0.1x10^3/uL (0.0-0.7) Basophils # (Auto) 0.1x10^3/uL (0.0-0.2) Sodium Level 140mmol/L (136-145) Potassium Level 3.9mmol/L (3.5-5.1) Chloride Level 103mmol/L (98-107) Carbon Dioxide Level 26mmol/L (21-32) Anion Gap 11 (6-14) Blood Urea Nitrogen 10mg/dL (7-20) Creatinine 0.8mg/dL (0.6-1.0) Estimated GFR (Cockcroft-Gault) 83.1 BUN/Creatinine Ratio 13 (6-20) Glucose Level 99mg/dL (70-99) Calcium Level 9.6mg/dL (8.5-10.1) Total Bilirubin 0.3mg/dL (0.2-1.0) Aspartate Amino Transf (AST/SGOT) 17U/L (15-37) Alanine Aminotransferase (ALT/SGPT) 21U/L (14-59) Alkaline Phosphatase 87U/L (46-116) Total Protein 7.6g/dL (6.4-8.2) Albumin 4.2g/dL (3.4-5.0) Albumin/Globulin Ratio 1.2 (1.0-1.7) Lipase 129U/L (73-393) Assessment/Plan Assessment/Plan RUQ pain, gallstones, low GB EF; recommend laparoscopic cholecystectomy. The details and risks of surgery were discussed with the patient. She understands and would like to proceed. MILADIS LEUNG MD Jan 21, 2017 07:41
[2017-01-21] MEDS ORDERED: CEFAZOLIN 2GM PREMIX 50 ML IV ONE (08:00)
[2017-01-21] MEDS ORDERED: BUPIVAC MPF-EPI 0.5%-1:200000 30 ML VIAL. INJ ONE (08:05)
[2017-01-21] MEDS ORDERED: NEOSTIGMINE METHYLSULFATE 5 MG/5 ML SYRINGE. ONE (08:21)
[2017-01-21] MEDS ORDERED: GLYCOPYRROLATE 1 MG/5 ML VIAL. ONE (08:21)
[2017-01-21] MEDS ORDERED: IOHEXOL 300 MG/ML 50 ML VIAL. IV ONE (08:25)
[2017-01-21] MEDS ORDERED: SEVOFLURANE 61 TO 120 MINUTES. IH ONE (08:26)
[2017-01-21] MEDS ORDERED: KETOROLAC 60 MG/2 ML INJ FOR OR. ONE (08:26)
--- NOTE | 2017-01-21 08:28 | RAD ---
Intraoperative cholangiogram, 01/21/2017: History: Cholecystectomy 3 spot films from surgery are presented for review. Contrast has been injected into the cystic duct remnant. 23 seconds of fluoroscopy time was utilized. 3 fluoroscopic spot images were recorded. There is good flow of contrast into the duodenum at the ampulla. The common duct is of normal caliber. No filling defect is seen in the common duct to suggest a retained calculus. The incompletely opacified intrahepatic ducts are unremarkable. IMPRESSION: No significant abnormality is detected.
--- NOTE | 2017-01-21 08:52 | PDOC4 ---
Operative Note Operative Note Operative Note: Preoperative Diagnosis: Calculus cholecystitis Postoperative Diagnosis: Same Procedure: Laparoscopic cholecystectomy with intraoperative cholangiogram Surgeons: [employer] Mechanic: Merline COMBS Anesthesia: Gen. Estimated Blood Loss: 10 mL Specimen: Gallbladder to pathology Drains: None Complications: None Indications: The patient is a 31-year-old female who is been experiencing recurrent upper abdominal pain consistent with biliary colic. Surgical treatment was offered by means of a laparoscopic cholecystectomy. The risks of surgery were discussed which include bleeding, infection, bile duct injury, bile leak, pain, the potential for additional surgeries or procedures. The patient understands and would like to proceed. Description: The patient was taken to the operating room and laid supine on the operating table. General anesthesia was performed. The abdomen was prepped with ChloraPrep and draped in a standard surgical fashion. A small infraumbilical incision was made with a scalpel. The Veress needle was then inserted and a pneumoperitoneum was then created. A 5 mm trocar was then inserted and the laparoscope was introduced. In the upper midabdomen a 5 mm trocar was inserted and in the right upper quadrant two 2.3 mm mini lap graspers were inserted. The gallbladder was retracted cephalad. The cystic duct was dissected free from surrounding tissues. One clip was placed on the duct near the gallbladder junction. An opening was made in the duct and a cholangiocatheter placed within and secured with a clip. Using contrast dye and fluoroscopy an intraoperative cholangiogram was performed that appeared unremarkable. The clip and catheter were then withdrawn. Three clips were placed on the cystic duct and it was divided. The cystic artery was then identified, dissected free, doubly clipped and divided as well. A posterior vessel was also clipped and divided. The gallbladder was then mobilized away from the liver with cautery. The umbilical 5 millimeter trocar was exchanged for an 11 millimeter trocar. The gallbladder was then placed in an endoscopic bag and extracted at the umbilical trocar site. The fascia there was closed with an 0 Vicryl suture. All blood and irrigation fluid was suctioned and hemostasis was good. The remaining ports were removed and the pneumoperitoneum was relieved. The skin incisions were injected with half percent Marcaine with epinephrine, and all were closed using 4-0 Monocryl suture. Steri-Strips and dressings were then applied. The patient tolerated the procedure well and was sent to the recovery room in stable condition. At the end of the case all counts were correct. MILADIS LEUNG MD Jan 21, 2017 08:52
[2017-01-21] MEDS ORDERED: OXYCODONE/APAP 5/325 TABLET. PO PRN (09:00)
[2017-01-21] MEDS ORDERED: CHOLECALCIFEROL (VITAMIN D3) 1,000 UNIT TABLET PO SCH (09:00)
[2017-01-21] MEDS ORDERED: DIPHENHYDRAMINE 50 MG/ML VIAL. ONE (09:24)
[2017-01-21] MEDS: DIPHENHYDRAMINE 50 MG/ML VIAL. IVP PRN ×2 (09:40→09:59)
--- NOTE | 2017-01-21 09:41 | ACF ---
Admission Forms Criteria GALLBLADDER OR BILE DUCT INFLAMMATION OR STONE Clinical Indications for Admission to Inpatient Care ( Place 'X' for any and all applicable criteria): Admission is indicated for patients with ANY ONE of the following(1)(2)(3)(4)(5) : [ ]I. Acute cholecystitis as indicated by ALL of the following: [ ]a) Right upper quadrant pain, mass, or tenderness [ ]b) Systemic signs of inflammation indicated by ANY ONE of the following: [ ]i) Fever [ ]ii) C-reactive protein level greater than 10 mg/L (95 nmol/L) [ ]iii) White blood cell count greater than 10,000/mm3 (10 x109/L) or less than 4000/mm3 (4 x109/L) [X]II. Inpatient admission required rather than observation care (Also use Gallbladder or Bile Duct Inflammation or Stone: Observation Care as appropriate) because of ANY ONE of the following: [ ]a) Common bile duct obstruction diagnosed [ ]b) Vomiting that is severe or persistent [ ]c) Severe pain requiring acute inpatient management [ ]d) Signs of intestinal obstruction or peritonitis [A] [ ]e) Severe electrolyte abnormalities requiring inpatient care [ ]f) Absent bowel sounds with complete ileus(8) [ ]g) Hemodynamic instability [ ]h) High fever or infection requiring inpatient admission as indicated by ANY ONE of the following (9): [ ]1) Appropriate outpatient or observation care antimicrobial Treatment. unavailable, not effective, or not feasible [ ]2) Temperature greater than 104.9 degrees F (40.5 degrees C) (oral) [ ]3) Temperature greater than 103.1 degrees F (39.5 degrees C) (oral) or less than 96.8 degrees F (36 degrees C) (rectal) that does not respond to all emergency treatment measures [ ]4) Documented bacteremia [ ]i) IV fluid to replace significant ongoing losses (greater than 3 L/m2 per day) [ ]j) Percutaneous or open drainage (eg, abscess, biliary tract) procedures [X]k) Immediate inpatient surgery [ ]l) Other condition, treatment or monitoring requiring inpatient admission [ ]III. Acute cholangitis as indicated by ALL of the following(9)(10): [ ]a) Systemic signs of inflammation indicated by ANY ONE of the following: [ ]i) Fever [ ]ii) C-reactive protein level greater than 10 mg/L (95 nmol /L) [ ]iii) White blood cell count greater than 10,000/mm3 (10 x109/L) or less than 4000/mm3 (4 x109/L) [ ]b) Evidence of common bile duct disease indicated by ANY ONE of the following: [ ]i) Total serum bilirubin level greater than or equal to 2 mg/dL (34 micromoles/L) [ ]ii) Liver function test (alkaline phosphatase (ALP), r- glutamyltransferase (GGT), aspartate aminotransferase (AST), or alanine aminotransferase (ALT)) greater than 1.5 times the upper limit of normal[B] [ ]iii) Hepatobiliary imaging showing biliary dilatation or evidence of etiology (eg, stricture, stone, previously placed stent) Extended stay beyond goal length of stay may be needed for (1)(2)): [ ]a) Bacteremia or Hemodynamic instability [ ]b) Cholecystectomy [ ]c) Other surgical procedure(24) [ ]d) Percutaneous or endoscopic ultrasound-guided cholecystostomy The original [facility] content created by [facility] has been revised. The portions of the content which have been revised are identified through the use of italic text or in bold, and [facility] has neither reviewed nor approved the modified material. All other unmodified content is copyright [facility]. Please see references footnoted in the original [facility] edition 2016 Admission Criteria Met?: Yes RALPH WARE Jan 21, 2017 09:41
[2017-01-21 10:30] VITALS: BP 122/77
[2017-01-21 10:32] VITALS: BP 119/78
[2017-01-21 11:02] VITALS: BP 114/69
[2017-01-21] MEDS: buPROPion SR 150 MG TABLET.SA PO SCH (11:25)
[2017-01-21] MEDS: OXYCODONE/APAP 5/325 TABLET. PO PRN ×2 (11:25→17:02)
[2017-01-21 12:30] VITALS: BP 112/69
--- NOTE | 2017-01-21 14:03 | PDOC3 ---
Discharge Summary Visit Information Date of Admission: Jan 20, 2017 Date of Discharge: Jan 21, 2017 Final Diagnosis Problems Medical Problems: (1) Abdominal pain Status: Acute (2) Cholelithiasis Status: Acute Brief Hospital Course Allergies Allergies Coded Allergies Type Severity Reaction Last Updated Verified guaifenesin Allergy Intermediate Hives 01/21/17 Yes chlorhexidine Adverse Reaction Intermediate Rash 01/21/17 Yes Vital Signs Vital Signs Date Time Temp Pulse Resp B/P Pulse Ox O2 Delivery O2 Flow Rate FiO2 01/21/17 13:25 Room Air 01/21/17 10:32 97 18 119/78 98 01/21/17 10:30 97.5 97.5 01/21/17 09:10 2 Lab Results Laboratory Tests Test 01/20/17 17:09 01/20/17 18:08 Bedside Urine HCG, Qualitative Hcg negative (Negative) White Blood Count 13.2x10^3/uL (4.0-11.0) Red Blood Count 5.12x10^6/uL (3.50-5.40) Hemoglobin 13.8g/dL (12.0-15.5) Hematocrit 43.4% (36.0-47.0) Mean Corpuscular Volume 85fL (79-100) Mean Corpuscular Hemoglobin 27pg (25-35) Mean Corpuscular Hemoglobin Concent 32g/dL (31-37) Red Cell Distribution Width 13.4% (11.5-14.5) Platelet Count 234x10^3/uL (140-400) Neutrophils (%) (Auto) 66% (31-73) Lymphocytes (%) (Auto) 26% (24-48) Monocytes (%) (Auto) 6% (0-9) Eosinophils (%) (Auto) 1% (0-3) Basophils (%) (Auto) 1% (0-3) Neutrophils # (Auto) 8.8x10^3uL (1.8-7.7) Lymphocytes # (Auto) 3.5x10^3/uL (1.0-4.8) Monocytes # (Auto) 0.8x10^3/uL (0.0-1.1) Eosinophils # (Auto) 0.1x10^3/uL (0.0-0.7) Basophils # (Auto) 0.1x10^3/uL (0.0-0.2) Sodium Level 140mmol/L (136-145) Potassium Level 3.9mmol/L (3.5-5.1) Chloride Level 103mmol/L (98-107) Carbon Dioxide Level 26mmol/L (21-32) Anion Gap 11 (6-14) Blood Urea Nitrogen 10mg/dL (7-20) Creatinine 0.8mg/dL (0.6-1.0) Estimated GFR (Cockcroft-Gault) 83.1 BUN/Creatinine Ratio 13 (6-20) Glucose Level 99mg/dL (70-99) Calcium Level 9.6mg/dL (8.5-10.1) Total Bilirubin 0.3mg/dL (0.2-1.0) Aspartate Amino Transf (AST/SGOT) 17U/L (15-37) Alanine Aminotransferase (ALT/SGPT) 21U/L (14-59) Alkaline Phosphatase 87U/L (46-116) Total Protein 7.6g/dL (6.4-8.2) Albumin 4.2g/dL (3.4-5.0) Albumin/Globulin Ratio 1.2 (1.0-1.7) Lipase 129U/L (73-393) Laboratory Tests Test 01/20/17 17:09 01/20/17 18:08 Bedside Urine HCG, Qualitative Hcg negative (Negative) White Blood Count 13.2x10^3/uL (4.0-11.0) Red Blood Count 5.12x10^6/uL (3.50-5.40) Hemoglobin 13.8g/dL (12.0-15.5) Hematocrit 43.4% (36.0-47.0) Mean Corpuscular Volume 85fL (79-100) Mean Corpuscular Hemoglobin 27pg (25-35) Mean Corpuscular Hemoglobin Concent 32g/dL (31-37) Red Cell Distribution Width 13.4% (11.5-14.5) Platelet Count 234x10^3/uL (140-400) Neutrophils (%) (Auto) 66% (31-73) Lymphocytes (%) (Auto) 26% (24-48) Monocytes (%) (Auto) 6% (0-9) Eosinophils (%) (Auto) 1% (0-3) Basophils (%) (Auto) 1% (0-3) Neutrophils # (Auto) 8.8x10^3uL (1.8-7.7) Lymphocytes # (Auto) 3.5x10^3/uL (1.0-4.8) Monocytes # (Auto) 0.8x10^3/uL (0.0-1.1) Eosinophils # (Auto) 0.1x10^3/uL (0.0-0.7) Basophils # (Auto) 0.1x10^3/uL (0.0-0.2) Sodium Level 140mmol/L (136-145) Potassium Level 3.9mmol/L (3.5-5.1) Chloride Level 103mmol/L (98-107) Carbon Dioxide Level 26mmol/L (21-32) Anion Gap 11 (6-14) Blood Urea Nitrogen 10mg/dL (7-20) Creatinine 0.8mg/dL (0.6-1.0) Estimated GFR (Cockcroft-Gault) 83.1 BUN/Creatinine Ratio 13 (6-20) Glucose Level 99mg/dL (70-99) Calcium Level 9.6mg/dL (8.5-10.1) Total Bilirubin 0.3mg/dL (0.2-1.0) Aspartate Amino Transf (AST/SGOT) 17U/L (15-37) Alanine Aminotransferase (ALT/SGPT) 21U/L (14-59) Alkaline Phosphatase 87U/L (46-116) Total Protein 7.6g/dL (6.4-8.2) Albumin 4.2g/dL (3.4-5.0) Albumin/Globulin Ratio 1.2 (1.0-1.7) Lipase 129U/L (73-393) Brief Hospital Course Ms. 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 [facility] consulted, Planned for lap thor [facility] AM. PAin had no identifiable precipotating or alleviating factors, mostly concentrated on RUQ area, no reported emesis etc PAst medical hx, Depression on wellbutrin, otherwise all else is neg. NO to 3 vices, FAm hx insignificant Underwent lap thor, tolerated proc well. Sending home pO percocet, ff up 2 weeks [facility], no work 1 full week Discharge Information Condition at Discharge: Improved, Stable Follow Up: Weeks (2 weeks ) Disposition/Orders: D/C to Home Scheduled Bupropion Hcl (Wellbutrin Sr) 150 MG PO BID (Reported) Cholecalciferol (Vitamin D3) (Vitamin D3) 2,000 UNIT PO DAILY (Reported) Cyclobenzaprine Hcl (Cyclobenzaprine Hcl) 1 TAB PO TID Naproxen (Naproxen) 1 TAB PO BID Omeprazole (Prilosec) 1 CAP PO DAILY Oxycodone/Apap 5-325 (Percocet 5-325 Mg Tablet) 1-2 TAB PO Q4HRS (Reported) HEIDI PRIETO MD Jan 21, 2017 14:02
[2017-01-21 15:00] VITALS: BP 122/71
--- NOTE | 2017-01-22 15:28 | PATHOLOGY ---
PATHOLOGY REPORT * * * * * * * * FINAL DIAGNOSIS: Gallbladder and focal attached liver tissue, laparoscopic cholecystectomy: - Cholelithiasis. - Cholesterolosis. - Chronic cholecystitis. COMMENT: There is no evidence of malignancy. (ELDERM:; d/t: 01/22/17) REPORT ELECTRONICALLY SIGNED BY: Chris Zazueta M.D. DATE/TIME: 01/22/2017 15:27 * * * * * * * * GROSS PATHOLOGY: Received in formalin labeled "Nesha Freeman - gallbladder and contents," is a 9.3 x 3.5 x 3.3 cm, intact gallbladder with pink-cristina, slightly hemorrhagic, and wrinkled serosal surfaces. Possible cristina-brown liver tissue is present on the surface of the gallbladder. Opening the gallbladder reveals dark green and velvety mucosa with diffuse yellow stippling and an average wall thickness of 0.2 cm. A 0.8 cm in greatest dimension yellow-green, spherical, and granular appearing calculus is present and no masses are noted grossly. Sales And Marketing Intern sections from the body and fundus are submitted along with the proximal margin and possible liver tissue in cassette A1. (TTL; 01/21/2017) INITIAL CPT CODE(S): A; 49139 Professional services performed [place] [facility] [place] [address] Technical services performed by [facility] [facility] at [address] [place] [address], [facility] [address], [place] [address] Haro fax: [phone] SPECIMEN(S) RECEIVED: A.Gallbladder and contents CLINICAL HISTORY: Cholecystitis, cholelithiasis PATIENT: NESHA FREEMAN /AGE: 212/08/1985 (Age: 31) PATIENT #: [id number] ALT CASE #: SPECIMEN COLLECTION DATE: 01/21/2017 SPECIMEN RECEIVED DATE: 01/21/2017 [facility] - [address] [place] [address] - PHONE: [phone] * * * END OF REPORT * * *
== END 2017-01-21 17:10 | disposition home or self-care (01) | DRG 419 ==
LOC: ER 17:15 → 4 NORTH 17:50
PROVIDERS: ADMIT Internal Medicine; ATTEND Internal Medicine
PROC: BF131ZZ Fluoroscopy of Gallbladder and Bile Ducts using Low Osmolar Contrast (ICD-10-PCS; 2017-01-21)
PROC: 0FT44ZZ Resection of Gallbladder, Percutaneous Endoscopic Approach (ICD-10-PCS; principal; 2017-01-21 08:00)
DX: K80.10 Calculus of gallbladder with chronic cholecystitis without obstruction (principal); F32.9 Major depressive disorder, single episode, unspecified; E66.3 Overweight; K21.9 Gastro-esophageal reflux disease without esophagitis; E55.9 Vitamin D deficiency, unspecified; F41.9 Anxiety disorder, unspecified; F53 Mental and behavioral disorders associated with the puerperium, not elsewhere classified; G43.909 Migraine, unspecified, not intractable, without status migrainosus; Z90.711 Acquired absence of uterus with remaining cervical stump; Z98.51 Tubal ligation status; Z88.8 Allergy status to other drugs, medicaments and biological substances
CPT/HCPCS: 36415; 74300; 80053; 81025; 83690; 85027; 88304; 96361; 96374; 96375; C1769; C1782; J0690; J1100; J1200; J1885; J2250; J2270; J2405; J2704; J2710; J3010; J3490; J7030; J7120; Q9967; 99285-25

== ENCOUNTER → 2017-02-06 | Outpatient (CLI) | payer OTHER ==
[2017-01-21 15:00] VITALS: BP 122/71
--- NOTE | 2017-02-07 15:18 | PATHOLOGY ---
PATHOLOGY REPORT * * * * * * * * FINAL DIAGNOSIS: Skin, right anterior thigh: - Dermatofibroma, involving all margins. COMMENT: There is no evidence of malignancy. The case is also examined by Dr. Pearl Lam, dermatopathologist with Pathology, who concurs with the diagnosis. (JPM:csd; d/t: 02/07/2017) REPORT ELECTRONICALLY SIGNED BY: Chris Zazueta M.D. DATE/TIME: 02/07/2017 15:17 * * * * * * * * GROSS PATHOLOGY: Received in formalin labeled "Nesha Freeman," and additionally labeled on the requisition as, "right anterior thigh". Received is a 1.3 x 0.7 x 0.2 cm ellipse of skin displaying a well-circumscribed, slightly raised and white-cristina lesion which measures 0.3 x 0.3 cm. The margins are inked black. The specimen is sectioned into five pieces and entirely submitted in cassettes A1 and A2, with the tips placed in cassette A2. (CAA; 02/06/2017) INITIAL CPT CODE(S): A; 12381 Professional services performed [place] [facility] [place] [address] Technical services performed by [facility] at [address] [place] [address], [address], [place] [address]. SPECIMEN(S) RECEIVED: A.Lesion of uncertain nature, right anterior thigh CLINICAL HISTORY: L98.9- Disorder of the skin and subcutaneous tissue, unspecified PATIENT: NESHA FREEMAN /AGE: 212/08/1985 (Age: 31) PATIENT #: [id number] ALT CASE #: SPECIMEN COLLECTION DATE: 02/05/2017 SPECIMEN RECEIVED DATE: 02/06/2017 [facility] - [address] [place] [address] - PHONE: [phone] * * * END OF REPORT * * *
== END | disposition home or self-care (01) ==
LOC: SPEC 08:57
PROVIDERS: ATTEND Family Medicine
DX: L98.9 Disorder of the skin and subcutaneous tissue, unspecified (principal)
CPT/HCPCS: 88305

== ENCOUNTER 2017-04-26 22:02 | Emergency (ER) | payer OTHER ==
[~2017-04-26 22:02] MED LIST changes: +DOCU-109 PO; -DOCU-27 PO
[2017-04-26] MEDS ORDERED: fentaNYL PF VIAL 100 MCG/2 ML VIAL IV PRN (23:15)
[2017-04-26 23:17] LABS: BASO # 0.1 x10^3/uL (0.0-0.2); BASO % 1 % (0-3); EOS % 1 % (0-3); HEMATOCRIT 41.5 % (36.0-47.0); HEMOGLOBIN 13.4 g/dL (12.0-15.5); LYMPH % 34 % (24-48); MEAN CORPUSCULAR HEMOGLOBIN 27 pg (25-35); MEAN CORPUSCULAR HGB CONC 32 g/dL (31-37); MEAN CORPUSCULAR VOLUME 85 fL (79-100); MONO % 5 % (0-9); NEUT % 58 % (31-73); PLATELET COUNT 222 x10^3/uL (140-400); WHITE BLOOD COUNT 11.8 x10^3/uL (4.0-11.0)
[2017-04-26 23:18] LABS: BILIRUBIN,URINE NEGATIVE (NEG); GLUCOSE,URINE NEGATIVE (NEG); NITRITE,URINE NEGATIVE (NEG); PH,URINE 7.5; PROTEIN,URINE NEGATIVE (NEG-TRACE); UROBILINOGEN,URINE 0.2 mg/dL (0.2 mg/dL)
[2017-04-26] MEDS ORDERED: FAMOTIDINE 20 MG/2 ML VIAL IVP ONE (23:30)
[2017-04-26] MEDS ORDERED: ONDANSETRON PF 4 MG/2 ML VIAL. IV ONE (23:30)
[2017-04-26] MEDS ORDERED: IV NORMAL SALINE 1000ML BAG 1,000 ML IV SCH (23:30)
[2017-04-26 23:31] LABS: BACTERIA,URINE FEW /HPF (0-FEW); RBC,URINE 0 /HPF (0-2); SQUAMOUS EPITHELIAL CELL,UR FEW /LPF; WBC,URINE OCC /HPF (0-4)
[2017-04-26 23:34] LABS: CALCIUM 9.2 mg/dL (8.5-10.1); CREATININE 0.8 mg/dL (0.6-1.0); GFR 83.1; POTASSIUM 3.8 mmol/L (3.5-5.1)
[2017-04-26 23:40] LABS: ALBUMIN 4.1 g/dL (3.4-5.0); ALBUMIN/GLOBULIN RATIO 1.3 (1.0-1.7); TOTAL BILIRUBIN 0.3 mg/dL (0.2-1.0); TOTAL PROTEIN 7.2 g/dL (6.4-8.2)
[2017-04-26] MEDS ORDERED: LIDO:MAALOX:DONNATAL 1:1:1 15 ML SINGLE DOSE SWSW ONE (23:45)
[2017-04-27] VITALS: BP 124/86
--- NOTE | 2017-04-27 | PHYS DOC ---
Past Medical History Past Medical History: Anxiety, GERD, Migraines Additional Past Medical Histor: ppd, vit d deficiency Past Surgical History: Cholecystectomy, Tonsillectomy, Tubal ligation Additional Past Surgical Histo: partial hymenectomy Alcohol Use: None Drug Use: None Adult General Chief Complaint Chief Complaint: ABDOMINAL PAIN HPI HPI Patient is a 31 year old female who presents with complaint of right upper quadrant abdominal pain. Patient states that she has been having recurrent abdominal pain in her right upper quadrant over the past several days. Patient has been following with a primary doctor, Dr. Mckeon, who has been setting patient up for referral for gastroenterology. Patient had her gallbladder removed in January 2017. Patient states that she has had recurrent symptoms since. Patient states that her symptoms became more severe and constant last night which prompted her to come to the emergency department for evaluation. Patient rates her pain currently as 7 out of 10. Patient states that the pain radiates towards her right lower back. Denies nausea, vomiting, diarrhea, or fevers. Patient has not taken any medications to help with symptoms at this time. Review of Systems Review of Systems Constitutional: Denies fever or chills [] Eyes: Denies change in visual acuity, redness, or eye pain [] HENT: Denies nasal congestion or sore throat [] Respiratory: Denies cough or shortness of breath [] Cardiovascular: Denies chest pain or edema [] GI: Abdominal pain, denies nausea, vomiting, bloody stools or diarrhea [] : Denies dysuria or hematuria [] Musculoskeletal: Denies back pain or joint pain [] Integument: Denies rash or skin lesions [] Neurologic: Denies headache, focal weakness or sensory changes [] Current Medications Current Medications Current Medications Medications (Trade) Dose Ordered Sig/[facility] Start Time Stop Time Status Last Admin Dose Admin Famotidine (Pepcid) 20 mg 1X ONCE 04/26/17 23:30 04/26/17 23:31 DC 04/26/17 23:27 20 MG Fentanyl Citrate (Fentanyl 2ml Vial) 50 mcg PRN Q15MIN PRN 04/26/17 23:15 04/26/17 23:24 DC Multi-Ingredient Mouthwash/Gargle (Gi Cocktail Single Dose) 15 ml 1X ONCE 04/26/17 23:45 04/26/17 23:46 DC 04/26/17 23:29 15 ML Ondansetron HCl (Zofran) 4 mg 1X ONCE 04/26/17 23:30 04/26/17 23:31 DC 04/26/17 23:27 4 MG Sodium Chloride 1,000 ml @ 1,000 mls/hr Q1H 04/26/17 23:30 04/27/17 00:12 DC 04/26/17 23:27 1,000 MLS/HR Allergies Allergies Allergies Coded Allergies Type Severity Reaction Last Updated Verified guaifenesin Allergy Intermediate Hives 01/21/17 Yes chlorhexidine Adverse Reaction Intermediate Rash 01/21/17 Yes Physical Exam Physical Exam Constitutional: Alert, afebrile, appears in moderate discomfort. [] HENT: Normocephalic, atraumatic, bilateral external ears normal, oropharynx moist, no oral exudates, nose normal. [] Eyes: PERRLA, EOMI, conjunctiva normal, no discharge. [] Neck: Normal range of motion, no tenderness, supple, no stridor. [] Cardiovascular:Heart rate regular rhythm, no murmur [] Lungs & Thorax: Bilateral breath sounds clear to auscultation [] Abdomen: Bowel sounds normal, soft, epigastric and right upper quadrant tenderness to palpation, no guarding or rebound tenderness, no pulsatile masses. [] Skin: Warm, dry, no erythema, no rash. [] Back: No tenderness, no CVA tenderness. [] Extremities: No tenderness, no cyanosis, no clubbing, ROM intact, no edema. [] Neurologic: Alert and oriented X 3, normal motor function, normal sensory function, no focal deficits noted. [] Current Patient Data Vital Signs Vital Signs Date Time Temp Pulse Resp B/P (MAP) Pulse Ox O2 Delivery O2 Flow Rate FiO2 04/27/17 00:00 70 124/86 (99) 04/26/17 22:30 Room Air 04/26/17 22:25 99.3 20 97 99.3 Lab Values Laboratory Tests Test 04/26/17 22:25 04/26/17 23:05 Urine Collection Type Unknown Urine Color Yellow Urine Clarity Clear Urine pH 7.5 Urine Specific [place] 1.010 Urine Protein Negative mg/dL (NEG-TRACE) Urine Glucose (UA) Negative mg/dL (NEG) Urine Ketones (Stick) Negative mg/dL (NEG) Urine Blood Negative (NEG) Urine Nitrite Negative (NEG) Urine Bilirubin Negative (NEG) Urine Urobilinogen Dipstick 0.2 mg/dL (0.2 mg/dL) Urine Leukocyte Esterase Negative (NEG) Urine RBC 0 /HPF (0-2) Urine WBC Occ /HPF (0-4) Urine Squamous Epithelial Cells Few /LPF Urine Bacteria Few /HPF (0-FEW) Urine Mucus Slight /LPF White Blood Count 11.8 x10^3/uL (4.0-11.0) H Red Blood Count 4.90 x10^6/uL (3.50-5.40) Hemoglobin 13.4 g/dL (12.0-15.5) Hematocrit 41.5 % (36.0-47.0) Mean Corpuscular Volume 85 fL (79-100) Mean Corpuscular Hemoglobin 27 pg (25-35) Mean Corpuscular Hemoglobin Concent 32 g/dL (31-37) Red Cell Distribution Width 13.0 % (11.5-14.5) Platelet Count 222 x10^3/uL (140-400) Neutrophils (%) (Auto) 58 % (31-73) Lymphocytes (%) (Auto) 34 % (24-48) Monocytes (%) (Auto) 5 % (0-9) Eosinophils (%) (Auto) 1 % (0-3) Basophils (%) (Auto) 1 % (0-3) Neutrophils # (Auto) 6.9 x10^3uL (1.8-7.7) Lymphocytes # (Auto) 4.0 x10^3/uL (1.0-4.8) Monocytes # (Auto) 0.6 x10^3/uL (0.0-1.1) Eosinophils # (Auto) 0.1 x10^3/uL (0.0-0.7) Basophils # (Auto) 0.1 x10^3/uL (0.0-0.2) Sodium Level 140 mmol/L (136-145) Potassium Level 3.8 mmol/L (3.5-5.1) Chloride Level 105 mmol/L (98-107) Carbon Dioxide Level 28 mmol/L (21-32) Anion Gap 7 (6-14) Blood Urea Nitrogen 13 mg/dL (7-20) Creatinine 0.8 mg/dL (0.6-1.0) Estimated GFR (Cockcroft-Gault) 83.1 BUN/Creatinine Ratio 16 (6-20) Glucose Level 97 mg/dL (70-99) Calcium Level 9.2 mg/dL (8.5-10.1) Total Bilirubin 0.3 mg/dL (0.2-1.0) Aspartate Amino Transferase (AST) 16 U/L (15-37) Alanine Aminotransferase (ALT) 23 U/L (14-59) Alkaline Phosphatase 86 U/L (46-116) Total Protein 7.2 g/dL (6.4-8.2) Albumin 4.1 g/dL (3.4-5.0) Albumin/Globulin Ratio 1.3 (1.0-1.7) Lipase 137 U/L (73-393) Laboratory Tests 04/26/17 23:05 Laboratory Tests 04/26/17 23:05 EKG EKG Not performed [] Radiology/Procedures Radiology/Procedures Not performed [] Course & Med Decision Making Course & Med Decision Making Pertinent Labs and Imaging studies reviewed. (See chart for details) Patient is treated with IV fluids, Zofran, Pepcid, and given GI cocktail. Patient states after receiving GI cocktail her symptoms significantly improved. The patient's symptoms are suspicious for peptic ulcer disease. I agree with the outpatient plan for gastroenterology follow-up and need for likely EGD for further evaluation of patient's symptoms. The patient does not appear to have an acute surgical process at her visit today. The patient will be discharged home. I recommended that the patient continue on twice a day Prilosec at home as well as use of Maalox as needed until follow-up with primary doctor in the next week. Advised return emergency department for any worsening symptoms. Patient was understanding and in agreement with treatment plan. Dragon Disclaimer Dragon Disclaimer This electronic medical record was generated, in whole or in part, using a voice recognition dictation system. Departure Departure Impression: Primary Impression: Abdominal pain Disposition: 01 HOME, SELF-CARE Condition: IMPROVED Referrals: TANIA MCKEON MD (PCP) Patient Instructions: Abdominal Pain (Nonspecific) Additional Instructions: You may increase your Prilosec to 1 dose twice daily for the next week until you have followed up with her primary doctor. You may also use [id number] Maalox as directed on the bottle as needed for symptoms. Return to the emergency department for any worsening symptoms. Problem Qualifiers Primary Impression: Abdominal pain Abdominal location: right upper quadrant Qualified Codes: R10.11 - Right upper quadrant pain KURT MADRID MD Apr 27, 2017 00:00
== END 2017-04-27 00:12 | disposition home or self-care (01) ==
LOC: ER 22:02
DX: R10.11 Right upper quadrant pain (principal); R10.13 Epigastric pain; F41.9 Anxiety disorder, unspecified; K21.9 Gastro-esophageal reflux disease without esophagitis; E55.9 Vitamin D deficiency, unspecified; Z90.49 Acquired absence of other specified parts of digestive tract; Z98.51 Tubal ligation status; Z88.8 Allergy status to other drugs, medicaments and biological substances
CPT/HCPCS: 36415; 80053; 81001; 81025; 83690; 85027; 96361; 96374; 96375; 99284; J2405; J7030; S0028

== ENCOUNTER → 2017-05-02 | Outpatient (CLI) | payer OTHER ==
[2017-04-27] VITALS: BP 124/86
[2017-05-02 17:05] LABS: ALBUMIN 4.3 g/dL (3.4-5.0); ALBUMIN/GLOBULIN RATIO 1.5 (1.0-1.7); CREATININE 0.8 mg/dL (0.6-1.0); GFR 83.1; POTASSIUM 3.9 mmol/L (3.5-5.1); TOTAL BILIRUBIN 0.3 mg/dL (0.2-1.0); TOTAL PROTEIN 7.2 g/dL (6.4-8.2)
== END | disposition home or self-care (01) ==
LOC: LAB 15:23
PROVIDERS: ATTEND Surgery
DX: R10.9 Unspecified abdominal pain (principal)
CPT/HCPCS: 36415; 80053

== ENCOUNTER → 2017-05-28 | Day surgery (SDC) | payer OTHER ==
[~2017-05-28] MED LIST changes: +IV RINGERS,LACTATED 1000ML 1,000 ML IV SCH; +PROPOFOL 20 ML IV ONE; +TOPI50TA38 PO
[2017-05-28 07:38] LABS: NEG OBC UR NEG; POS OBC UR POS
[2017-05-28 08:05] VITALS: BP 102/63
--- NOTE | 2017-05-29 12:34 | PATHOLOGY ---
PATHOLOGY REPORT * * * * * * * * FINAL DIAGNOSIS: Esophageal biopsies, distal esophagus: - Segments of mildly hyperplastic squamous esophageal mucosa, consistent with reflux esophagitis. COMMENT: Sections of the distal esophageal biopsy reveal segments of focally tangentially oriented, hyperplastic squamous esophageal mucosa. The findings are consistent with reflux esophagitis. There is no evidence of Baeza's change, dysplasia, or malignancy. (JPM:mgr; 05/29/2017) REPORT ELECTRONICALLY SIGNED BY: Chris Zazueta M.D. DATE/TIME: 05/29/2017 11:11 * * * * * * * * GROSS PATHOLOGY: Received in formalin labeled "Nesha Freeman, distal esophagus, r/o Baeza's," are four segments of cristina soft tissue measuring from 0.2 up to 0.3 cm in maximum dimension. The specimen is submitted entirely in cassette A1. (JPM; 05/28/17) INITIAL CPT CODE(S): A; 55695 Professional services performed [place] [facility] [place] [address] Technical services performed by [facility] at [address] [place] [address]. SPECIMEN(S) RECEIVED: A.Distal esophageal biopsy CLINICAL HISTORY: GERD PATIENT: NESHA FREEMAN /AGE: 212/08/1985 (Age: 31) PATIENT #: [id number] ALT CASE #: SPECIMEN COLLECTION DATE: 05/28/2017 SPECIMEN RECEIVED DATE: 05/28/2017 [facility] - [address] [place] [address] - PHONE: [phone] * * * END OF REPORT * * *
== END | disposition home or self-care (01) ==
LOC: ENDOS 06:27
PROVIDERS: ATTEND Internal Medicine Gastroenterology
DX: K21.0 Gastro-esophageal reflux disease with esophagitis (principal); K29.50 Unspecified chronic gastritis without bleeding; F41.9 Anxiety disorder, unspecified; F32.9 Major depressive disorder, single episode, unspecified; Z88.8 Allergy status to other drugs, medicaments and biological substances; Z85.3 Personal history of malignant neoplasm of breast; Z72.89 Other problems related to lifestyle
CPT/HCPCS: 43239; 81025; 88305; J2704

== ENCOUNTER → 2017-06-12 | Outpatient (CLI) | payer OTHER ==
[2017-05-28 08:05] VITALS: BP 102/63
[~2017-06-12] MED LIST changes: -IV RINGERS,LACTATED 1000ML 1,000 ML IV SCH; -PROPOFOL 20 ML IV ONE
[2017-06-12 14:23] LABS: ALBUMIN 4.3 g/dL (3.4-5.0); ALBUMIN/GLOBULIN RATIO 1.5 (1.0-1.7); CALCIUM 8.8 mg/dL (8.5-10.1); GFR 64.3; TOTAL BILIRUBIN 0.3 mg/dL (0.2-1.0); TOTAL PROTEIN 7.1 g/dL (6.4-8.2)
[2017-06-12 14:32] LABS: FREE T4 0.88 ng/dL (0.76-1.46)
== END | disposition home or self-care (01) ==
LOC: LAB 13:31
PROVIDERS: ATTEND Internal Medicine Gastroenterology
DX: R19.7 Diarrhea, unspecified (principal); R63.4 Abnormal weight loss
CPT/HCPCS: 80053; 84439; 84443

== ENCOUNTER 2018-01-27 08:45 | Emergency (ER) | payer OTHER ==
[2018-01-27 09:20] LABS: URINE HCG POC HCG NEGATIVE (Negative)
[2018-01-27] MEDS: KETOROLAC 60 MG/2 ML INJ. IM (09:30)
[2018-01-27 09:43] LABS: BILIRUBIN,URINE NEGATIVE (NEG); CLARITY,URINE CLEAR; COLOR,URINE YELLOW; GLUCOSE,URINE NEGATIVE (NEG); NITRITE,URINE NEGATIVE (NEG); PROTEIN,URINE NEGATIVE (NEG-TRACE); UROBILINOGEN,URINE 0.2 mg/dL (0.2 mg/dL)
[2018-01-27 10:18] LABS: BACTERIA,URINE MODERATE /HPF (0-FEW); RBC,URINE 0 /HPF (0-2); SQUAMOUS EPITHELIAL CELL,UR MOD /LPF
== END 2018-01-27 10:33 | disposition home or self-care (01) ==
LOC: ER 08:45
DX: G43.909 Migraine, unspecified, not intractable, without status migrainosus (principal); K21.9 Gastro-esophageal reflux disease without esophagitis; Z88.8 Allergy status to other drugs, medicaments and biological substances
CPT/HCPCS: 81001; 81025; 87086; 96372; 99284-25; J1885

== ENCOUNTER → 2019-11-12 | Outpatient (CLI) | payer OTHER ==
[2018-01-27 09:30] VITALS: BP 133/89
[~2019-11-12] MED LIST changes: +NAPR-514 PO; -NAPR500T3 PO; -OXYC-323 PO; +OXYC1TAB15 PO; +PROM25TA10 PO
--- NOTE | 2019-11-12 08:06 | RAD ---
Examination: PELVIS COMPLETE History: Abnormal uterine bleeding Comparison/Correlation: None Findings: Transabdominal pelvic ultrasound exam was performed. Uterus measures 9.6 cm and 0.5 cm hypoenhancing. Endometrial thickness is 1.1 cm. Myometrium and endometrium are unremarkable and homogeneous in appearance. No intrauterine fluid collection. No masses. Right ovary measures 3.8 cm x 3 cm x 2.6 cm left ovary measures 4 cm x 2.6 cm x 2.2 cm. No mass lesions or suspicious cystic lesions. Normal adnexal flow identified on color and spectral Doppler imaging. No pelvic free fluid. Impression: Normal transabdominal pelvic ultrasound exam. Electronically signed by: Raudel England MD (11/12/2019 8:03 AM) [facility]
== END | disposition home or self-care (01) ==
LOC: US 07:14
PROVIDERS: ATTEND Obstetrics & Gynecology
DX: N93.9 Abnormal uterine and vaginal bleeding, unspecified (principal); N94.6 Dysmenorrhea, unspecified; N93.0 Postcoital and contact bleeding
CPT/HCPCS: 76856

== ENCOUNTER 2019-12-09 06:55 | Day surgery (SDC) | payer OTHER ==
[~2019-12-09] VITALS: Ht 175.3 cm; Wt 78.9 kg
[~2019-12-09 06:55] MED LIST changes: +ceFAZolin SODIUM IV Push 1 GM VIAL. IVP PRN
[2019-12-09] MEDS ORDERED: fentaNYL PF VIAL 100 MCG/2 ML VIAL IV PRN ×2 (07:00)
[2019-12-09] MEDS ORDERED: MORPHINE SULFATE 2 MG/ML VIAL. IV PRN (07:00)
[2019-12-09] MEDS ORDERED: IV RINGERS,LACTATED 1000ML 1,000 ML IV SCH (07:00)
[2019-12-09] MEDS ORDERED: HYDROmorphone 2 MG/ML VIAL IV PRN (07:00)
[2019-12-09] MEDS ORDERED: ONDANSETRON PF 4 MG/2 ML VIAL. IV PRN (07:00)
[2019-12-09] MEDS ORDERED: PROCHLORPERAZINE 10 MG/2 ML VIAL. IV PRN (07:00)
[2019-12-09] MEDS ORDERED: VENL37.5 PO (07:28)
[2019-12-09] MEDS ORDERED: METH10TA4 PO (07:29)
[2019-12-09] MEDS ORDERED: SCOPOLAMINE 1.5MG PATCH. TD ONE (07:30)
[2019-12-09] MEDS ORDERED: fentaNYL PF VIAL 100 MCG/2 ML VIAL ONE (08:16)
[2019-12-09] MEDS ORDERED: PROPOFOL 20 ML IV ONE (08:16)
[2019-12-09] MEDS ORDERED: LIDOCAINE 2% PF 5 ML VIAL. ONE (08:16)
[2019-12-09] MEDS ORDERED: SEVOFLURANE 16 TO 30 MINUTES. IH ONE (09:38)
[2019-12-09] MEDS ORDERED: DEXAMETHASONE SOD PHOS 4 MG/ML VIAL ONE (09:38)
[2019-12-09] MEDS ORDERED: ONDANSETRON PF 4 MG/2 ML VIAL. ONE (09:38)
--- NOTE | 2019-12-09 10:06 | PDOC ---
BRIEF OPERATIVE NOTE Date: Dec 09, 2019 Pre-Op Diagnosis AUB Post-Op Diagnosis Same + Endometrial Polyp Procedure Performed Op [facility] Surgeon Dr. Golden Anesthesia Type: General Blood Loss 5 ml Specimens Obtained endometrial polyp Findings endometrial polyp Complications none Operative Note see dictation SREE GOLDEN Jr, MD Dec 09, 2019 10:06
--- NOTE | 2019-12-09 10:08 | DISCH ---
DISCHARGE INSTRUCTIONS Condition on Discharge Condition on Discharge: Stable Activity After Discharge Activity Instructions for Disc: Activity as tolerated, Avoid exertion Lifting Instructions after Dis: No heavy lifting, No pulling or pushing, Do not lift >10 pounds Driving Instructions after Dis: Do not drive today Weight Bearing Status after Di: Full weight bearing Diet after Discharge Diet after Discharge: Regular Checks after Discharge Checks after discharge: Check your Temp as needed Contacting the DRSharifa after DC Call your doctor for: Concerns you may have Follow-Up Follow up with: Dr. Golden in 1 week. Treatment/Equipment after DC Adaptive Equipment Issued: None SREE GOLDEN Jr, MD Dec 09, 2019 10:08
--- NOTE | 2019-12-09 10:27 | OP ---
DATE OF SURGERY: PREOPERATIVE DIAGNOSIS: Abnormal uterine bleeding. POSTOPERATIVE DIAGNOSES: Abnormal uterine bleeding, plus endometrial polyp. PROCEDURE: Operative hysteroscopy. SURGEON: Adebayo Golden MD ANESTHESIA: GETA. ESTIMATED BLOOD LOSS: 5 mL. COMPLICATIONS: None. FINDINGS: Endometrial polyp. SUMMARY: A 34-year-old female with abnormal uterine bleeding, presented for operative hysteroscopy. She was counseled on the risks, benefits and expectations and voiced clear understanding to proceed. DESCRIPTION OF PROCEDURE: The patient was taken to surgery suite and placed in dorsal lithotomy position, and she was prepped with Betadine solution and draped in sterile fashion. After adequate anesthesia, weighted speculum and curved [place] placed vaginally. Anterior lip of the cervix grasped with single tooth tenaculum. Cervix dilated with Hegar dilators up to size 7. The TruClear hysteroscope was then placed. There were some remnants of endometrial polyp that was there and removed with the TruClear resection device. The endometrial cavity was then homogenous. The fallopian tube ostia appeared normal bilaterally and patent. The hysteroscope was then removed. Single tooth tenaculum and weighted speculum were removed. The patient tolerated the procedure well and was taken to recovery room in stable condition. Sponge count correct x 3. ADEBAYO GOLDEN MD DR: LAURA/paxton JOB#: [id number] / [id number]
[2019-12-09] MEDS ORDERED: KETOROLAC 30 MG/ML VIAL. IVP ONE (10:45)
[2019-12-09 10:49] VITALS: BP 115/62
--- NOTE | 2019-12-10 14:07 | PATHOLOGY ---
[facility] Accession Number: [id number] . 01 Material submitted: . endometrium - ENDOMETRIAL BIOPSY . 01 Clinical history: . Abnormal uterine bleeding . 02 Diagnosis: Endometrial biopsy: - Early secretory endometrium. . (JPM:emeli; 12/10/2019) S 12/10/2019 0858 Local . 02 Comment: Sections of the endometrial biopsy reveal segments of early secretory endometrium. Many of the endometrial glands show subnuclear vacuolization. There is no evidence of hyperplasia or malignancy. (JPM:emeli; 12/10/2019) . 02 Electronically signed: . Chris Zazueta MD, Pathologist NPI- [id number] . 01 Gross description: . The specimen is received in formalin, labeled "Nesha Basilio, endometrial biopsy". Received are multiple segments of pale cristina soft tissue measuring 1.0 x 0.9 x 0.2 cm in aggregate dimensions. The specimen is filtered and entirely submitted in cassette A1. (CAA; 12/09/2019) QA/QA 12/09/2019 1731 Local . 02 Pathologist provided ICD-10: N93.9 . 02 CPT . 074584 Specimen Comment: Report sent to Performed at: 01 [facility] [address], [place] [id number] MD Aldo Nayak MD Phone: [phone] Performed at: [address] [facility] [address] [place], [place] [id number] MD Chris Zazueta MD Phone: [phone]
== END 2019-12-09 11:20 | disposition home or self-care (01) ==
LOC: SURG 06:55
PROVIDERS: ATTEND Obstetrics & Gynecology
DX: N93.9 Abnormal uterine and vaginal bleeding, unspecified (principal); N84.0 Polyp of corpus uteri; G43.909 Migraine, unspecified, not intractable, without status migrainosus; K21.9 Gastro-esophageal reflux disease without esophagitis; F41.9 Anxiety disorder, unspecified; F32.9 Major depressive disorder, single episode, unspecified; E66.9 Obesity, unspecified; Z68.42 Body mass index [BMI] 45.0-49.9, adult; Z90.49 Acquired absence of other specified parts of digestive tract; Z98.51 Tubal ligation status
CPT/HCPCS: 58558; 81025; 88305; A7015; J0690; J1100; J1885; J2001; J2405; J2704; J3010

== ENCOUNTER → 2020-01-24 | Outpatient (CLI) | payer OTHER ==
[~2020-01-24] MED LIST changes: +METH10TA4 PO; +VENL37.5 PO; -ceFAZolin SODIUM IV Push 1 GM VIAL. IVP PRN
== END ==
LOC: LAB 14:04
PROVIDERS: ATTEND Internal Medicine Pulmonary Disease
DX: Z20.828 Contact with and (suspected) exposure to other viral communicable diseases (principal)
CPT/HCPCS: 36415; 99001; U0001

== ENCOUNTER 2020-10-05 06:52 | Day surgery (SDC) | payer OTHER ==
[~2020-10-05] VITALS: Ht 175.3 cm; Wt 92.5 kg
[~2020-10-05 06:52] MED LIST changes: +BUPIVACAINE-EPI 0.25%-1:200000 MPF 30 ML VIAL. INJ ONE
[2020-10-05] MEDS ORDERED: LIDOCAINE 1% PF 2 ML VIAL. ID PRN (07:00)
[2020-10-05] MEDS ORDERED: fentaNYL PF VIAL 100 MCG/2 ML VIAL IVP PRN ×2 (07:00)
[2020-10-05] MEDS ORDERED: HYDROmorphone 2 MG/ML VIAL IVP PRN (07:00)
[2020-10-05] MEDS ORDERED: PROCHLORPERAZINE 10 MG/2 ML VIAL. IVP PRN (07:00)
[2020-10-05] MEDS ORDERED: ONDANSETRON PF 4 MG/2 ML VIAL. IVP PRN (07:00)
[2020-10-05] MEDS ORDERED: IV RINGERS,LACTATED 1000ML 1,000 ML IV SCH (07:00)
[2020-10-05] MEDS ORDERED: MORPHINE SULFATE 2 MG/ML VIAL. IVP PRN (07:00)
[2020-10-05 07:36] LABS: BASO % 1 % (0-3); EOS # 0.2 x10^3/uL (0.0-0.7); EOS % 2 % (0-3); HEMATOCRIT 39.2 % (36.0-47.0); HEMOGLOBIN 12.7 g/dL (12.0-15.5); LYMPH # 2.8 x10^3/uL (1.0-4.8); LYMPH % 26 % (24-48); MEAN CORPUSCULAR HEMOGLOBIN 27 pg (25-35); MEAN CORPUSCULAR HGB CONC 32 g/dL (31-37); MEAN CORPUSCULAR VOLUME 84 fL (79-100); MONO # 0.6 x10^3/uL (0.0-1.1); MONO % 5 % (0-9); NEUT # 7.2 x10^3/uL (1.8-7.7); NEUT % 67 % (31-73); PLATELET COUNT 248 x10^3/uL (140-400); RED BLOOD COUNT 4.66 x10^6/uL (3.50-5.40); RED CELL DISTRIBUTION WIDTH 13.6 % (11.5-14.5); WHITE BLOOD COUNT 10.8 x10^3/uL (4.0-11.0)
[2020-10-05] MEDS ORDERED: VASOPRESSIN 20 UNIT/ML VIAL. ONE (07:36)
[2020-10-05] MEDS ORDERED: 0.9 % SODIUM CHLORIDE 20 ML VIAL. IJ ONE ×3 (07:36→07:37)
[2020-10-05] MEDS ORDERED: METHYLENE BLUE 0.5% 10ml AMPULE. ONE (07:36)
[2020-10-05] MEDS ORDERED: MIDAZOLAM HCL/PF 2 MG/2 ML VIAL. ONE ×2 (08:07→08:33)
[2020-10-05] MEDS ORDERED: fentaNYL PF VIAL 100 MCG/2 ML VIAL ONE ×3 (08:07→09:57)
[2020-10-05] MEDS ORDERED: BUPIVACAINE MPF 0.25% 30 ML VIAL. ONE (08:09)
[2020-10-05] MEDS ORDERED: ROCURONIUM 100 MG/10 ML VIAL. ONE (08:35)
[2020-10-05] MEDS ORDERED: DEXAMETHASONE SOD PHOS 4 MG/ML VIAL ONE (08:38)
[2020-10-05] MEDS ORDERED: ONDANSETRON PF 4 MG/2 ML VIAL. ONE (08:38)
[2020-10-05] MEDS ORDERED: FAMOTIDINE 20 MG/2 ML VIAL ONE (08:38)
[2020-10-05] MEDS ORDERED: KETOROLAC 30 MG/ML VIAL. ONE (08:38)
[2020-10-05] MEDS ORDERED: GLYCOPYRROLATE 1 MG/5 ML VIAL. ONE (09:40)
[2020-10-05] MEDS ORDERED: PHENYLEPHRINE in 0.9% NACL PF 1 MG/10 ML SYRINGE. IV ONE (09:40)
[2020-10-05] MEDS ORDERED: NEOSTIGMINE METHYLSULFATE 5 MG/5 ML SYRINGE. ONE (09:40)
--- NOTE | 2020-10-05 10:00 | PDOC ---
BRIEF OPERATIVE NOTE Date: Oct 05, 2020 Pre-Op Diagnosis menorrhaia, dysmenorrhea Post-Op Diagnosis same plus mild endometriosis and likely adenomyosis Procedure Performed operative scope with vapo endometiosis, lysis of adhesions, h/s D&C with novasure endometrial ablation Surgeon Dr. Gudelia Lester Raw Scales Operator Alistair Rosenberg Anesthesiologist Dr. Purvis Anesthesia Type: General Blood Loss 5cc IV Fluid see anesthesia Urine Output straight cath prior Specimens Obtained endometrial currettings Findings enlarged, boggy RV uterus, normal bilateral tubes/ovaries; hypervascular tissue, mild endometriosis in post cul de sac and start of jeff masters window Complications none Operative Note [id number] GUDELIA LESTER MD Oct 05, 2020 10:00
--- NOTE | 2020-10-05 10:21 | OP ---
DATE OF SURGERY: 10/05/2020 PREOPERATIVE DIAGNOSES: Menorrhagia, dysmenorrhea. POSTOPERATIVE DIAGNOSES: Menorrhagia, dysmenorrhea, plus mild endometriosis and likely adenomyosis of the uterus. PROCEDURE: Operative laparoscopy, vaporization of endometriosis, lysis of adhesions, hysteroscope D and C with NovaSure endometrial ablation. SURGEON: Ulysses Lester MD CABLE RESPOOLER: MYLENE Rosenberg ANESTHESIOLOGIST: Dr. Purvis. ANESTHESIA: General. ESTIMATED BLOOD LOSS: 5 mL. URINE OUTPUT: With a straight cath prior to procedure. SPECIMENS: Endometrial curettings. FINDINGS: An enlarged boggy retroverted uterus consistent with adenomyosis. Normal bilateral tubes and ovaries. She had very hypervascular and hyperemic tissue suggestive of Endo, mild left-sided adhesions of the descending colon to the left sidewall, also some very hypervascular and almost blister-like lesions in the posterior cul-de-sac and the start of an Andrez-Masters window near the left uterosacral ligament. COMPLICATIONS: None. DESCRIPTION OF PROCEDURE: This patient was taken to the operating room where general anesthesia was placed. The patient was placed in dorsal lithotomy position in [facility]. The patient's abdomen and vagina were both prepped and draped in the normal sterile fashion and a straight cath urine was done prior to my arrival. Upon my arrival, once everyone agreed on the patient, the site, the procedure, antibiotics, the procedure was initiated. A bivalve speculum was placed in the patient's vagina. A single-tooth tenaculum was used to grasp the anterior lip of the cervix. She was dilated to a 9 with the Hegar dilator. She sounded to 8-9 cm. At this point, the Valtchev uterine manipulator was placed through the endocervical os, locked on the single-tooth tenaculum and the bivalve speculum was then removed. Top gloves were discarded and changed. Attention was then turned to the abdomen where a small infraumbilical skin incision was made with the scalpel over an existing scar. A curved Dorita was used to dissect through the subcuticular layer to the fascia. The 5 mm Visiport was used to directly enter the abdominal cavity. Opening patient pressure was 4-5 mmHg. Carbon dioxide gas was used to then appropriately insufflate the abdominal cavity to maintain a pressure of 15 mmHg. The patient was placed in Trendelenburg position. A 5 mm suprapubic port was placed after making a small incision in the midline and placing the 5 mm atraumatic trocar under direct visualization and 4-5 mL of air was placed in the trocar cuff. The camera was moved to look at the umbilical port. It was also insufflated with 4-5 mL of air. Once it was ensured to be in the abdominal cavity in the correct place with no adhesions around it. The camera was moved back to the midline and the procedure was initiated first. A probe was placed in the 5 mm port. Right upper quadrant was grossly normal. Bowel was grossly normal. I could see the end of the rectosigmoid junction where the appendix should be, but it was kind of tucked under and I did not go digging for it, but I could see that general area, minimal adhesions, nothing grossly wrong. She had an enlarged boggy retroverted uterus, very hypervascular, hyperemic tissue. Bladder looked okay. Mild implants in the posterior cul-de-sac with the window as stated above. I could identify the ureters on both sides easily. She had good anatomy, nothing grossly wrong with the ovaries at all. I did take down the small adhesion on the left side sharply with the LigaSure and pulled it gently and once this peritoneum was scored, peeled it down off the sidewall and then used the monopolar hook to cauterize the posterior cul-de-sac, the hypervascular blister-like lesions. Once this was done, the abdominal part had ended. There was essentially no bleeding. The cuff was deflated. It was removed under direct visualization and was hemostatic. Gas was released from the umbilical port. The cuff was deflated and then it was removed as well. Both port sites were closed with 4-0 nylon and injected with 0.25% Marcaine with epinephrine. Attention was then turned below where a weighted speculum was placed. The hysteroscope was obtained. She had an enlarged again 8-9 cm uterus. Both tubal ostia were seen. There were no gross abnormalities. She just had some tissue. I did a mild curetting just to send it off for pathology. Then the NovaSure was obtained and it was set at a length of 6, opened up to a width of 4.5. The cuff was placed up against the cervix. The device was enabled to perform the cavity assessment check. Once it passed the cavity assessment check, it went straight into the ablation process, which lasted 51 seconds. The device was removed. The tenaculum was removed. There was no active bleeding. The speculum was removed. All sponge, lap and needle counts were correct x 2 by OR personnel. The patient is currently being awakened from anesthesia. ULYSSES LESTER MD DR: ANNA MARIE/paxton JOB#: [id number] / [id number]
[2020-10-05] MEDS ORDERED: oxyCODONE/APAP 5/325 1 TAB TABLET PO ONE (10:45)
[2020-10-05 11:00] VITALS: BP 117/72
--- NOTE | 2020-10-10 00:06 | PATHOLOGY ---
[facility] Accession Number: [id number] . 01 Material submitted: . endometrium - ENDOMETRIAL CURETTAGE . 01 Clinical history: . DYSMENORRHEA, MENNORHAGIA . 02 Diagnosis: "Endometrial curettage", curettage: - Endometrium with disordered proliferative phase and fragments of endometrial polyp; no atypical hyperplasia or malignancy seen. (CLW/db; 10/09/2020) LBQ 10/09/2020 1525 Local . 02 Diagnosis provided by: . Trisha Silva MD, Pathologist NPI- [id number] . 03 Electronically signed: . Trisha Silva MD, Pathologist NPI- [id number] . 01 Gross description: . Received in formalin labeled "Nesha Basilio, endometrial curettage" is soft, mucoid, and hemorrhagic cristina-brown tissue measuring 4.8 x 2.0 x 0.6 cm which is entirely submitted in A1-A2.(SDY; 10/06/2020) SYU/SYU 10/06/2020 1317 Local . 02 Pathologist provided ICD-10: N85.9, N84.0 . 02 CPT . 925649 Specimen Comment: A courtesy copy of this report has been sent to [phone], [phone] Specimen Comment: [id number] Specimen Comment: Report sent to / DR RODRÍGUEZ Performed at: 01 [facility] [address] [address], [place] [id number] MD Juan Freitas MD Phone: [phone] Performed at: 02 [facility] [address] [id number] MD Mike Candelaria MD Phone: [phone] Performed at: 03 [facility] [address] [place], [place] [id number] MD Chris Zazueta MD Phone: [phone]
== END 2020-10-05 11:25 | disposition home or self-care (01) ==
LOC: SURG 06:52
PROVIDERS: ATTEND Obstetrics & Gynecology
DX: N92.0 Excessive and frequent menstruation with regular cycle (principal); N94.6 Dysmenorrhea, unspecified; N84.0 Polyp of corpus uteri; N80.0 Endometriosis of uterus; K66.0 Peritoneal adhesions (postprocedural) (postinfection); F31.9 Bipolar disorder, unspecified; K21.9 Gastro-esophageal reflux disease without esophagitis; F41.9 Anxiety disorder, unspecified; Z88.8 Allergy status to other drugs, medicaments and biological substances; Z80.3 Family history of malignant neoplasm of breast; Z79.899 Other long term (current) drug therapy; Z98.890 Other specified postprocedural states; Z98.51 Tubal ligation status; Z90.49 Acquired absence of other specified parts of digestive tract
CPT/HCPCS: 36415; 49329; 58563; 81025; 85025; 88305; J0690; J1100; J1885; J2250; J2370; J2405; J2710; J3010; J3490; J7120; Q9968

== ENCOUNTER → 2021-09-20 | Outpatient (CLI) | payer BC ==
[~2021-09-20] MED LIST changes: -BUPIVACAINE-EPI 0.25%-1:200000 MPF 30 ML VIAL. INJ ONE; +CYCL10TA19 PO; -CYCL10TA2 PO
[2021-09-21 00:17] LABS: RHEUMATOID FACTOR <10.0 IU/mL (<14.0)
[2021-09-21 22:37] LABS: ANA INTERP Negative (.)
== END ==
LOC: LAB 14:12
PROVIDERS: ATTEND Nurse Practitioner Family
DX: G43.109 Migraine with aura, not intractable, without status migrainosus (principal); L50.9 Urticaria, unspecified; Z84.0 Family history of diseases of the skin and subcutaneous tissue; Z82.61 Family history of arthritis
CPT/HCPCS: 36415; 84443; 85651; 86038; 86140; 86431